=== PATIENT | female | born 1980 | race Caucasian/White ===

== ENCOUNTER → 2018-10-02 | Outpatient (CLI) | payer BC ==
[~2018-10-02] MED LIST: INSU100V5 SQ; PAMI30VI8 SQ
--- NOTE | 2018-10-02 18:52 | Diagnostic Imaging Report ---
INDICATION: Cough. Fever and chills. FINDINGS: There is a dense round infiltrate in the perihilar region in the left mid lung. This measures approximately 4 cm. The right lung is well-aerated and clear. The heart is not enlarged. No pulmonary edema. No pneumothorax or pleural effusion. IMPRESSION: Dense perihilar infiltrate on the left. This likely represents pneumonia with patient's symptoms. Followup is indicated to clear. Dictated by: Dictated on workstation # [id number]
== END ==
LOC: RAD FS 18:33
PROVIDERS: ATTEND Internal Medicine
DX: R91.8 Other nonspecific abnormal finding of lung field (principal); R05 Cough; R50.9 Fever, unspecified
CPT/HCPCS: 71046

== ENCOUNTER 2018-10-04 13:05 | Inpatient (IN) | payer BC ==
[~2018-10-04] VITALS: Ht 167.6 cm; Wt 74.4 kg
[2018-10-04] MEDS ORDERED: KETOROLAC 30 MG/ML VIAL IVP ONE (13:15)
[2018-10-04] MEDS ORDERED: NS IV 1000 ML 1,000 ML IV SCH ×2 (13:15→14:00)
--- NOTE | 2018-10-04 13:18 | ED Cough/URI ---
General Stated Complaint: PNEUMONIA Source: patient Exam Limitations: no limitations History of Present Illness Date Seen by Provider: Oct 04, 2018 Time Seen by Provider: 13:14 Initial Comments To ER per private vehicle with reports of pneumonia. She was seen at [facility] emergency room 2 days ago, given a shot and a prescription of antibiotics ( Levaquin). She is a type I diabetic and taking Levemir 30 units at at bedtime and NovoLog sliding scale twice a day. Due to nausea and vomiting she was unable to keep down the oral antibiotic starting yesterday. Was referred here. Primary care is Dr. Megan Valdovinos. Timing/Duration: constant Severity/Quality: moderate Associated Symptoms: cough, fever/chills, shortness of breath Allergies and Home Medications Allergies Coded Allergies: carbamazepine (Verified Allergy, Unknown, 10/04/18) Home Medications Insulin Determir 1,000 Units/10 Ml Soln, 30 UNITS SQ HS, (Reported) Insulin Lispro 100 Unit/1 Ml Cartridge, Unknown Dose SQ SLIDING/SCALE, (Reported ) Patient Home Medication List Home Medication List Reviewed: Yes Review of Systems Review of Systems Constitutional: see HPI, chills, malaise, weakness EENTM: see HPI Respiratory: see HPI, cough, short of breath Cardiovascular: no symptoms reported Genitourinary: no symptoms reported Musculoskeletal: no symptoms reported Skin: no symptoms reported Psychiatric/Neurological: No Symptoms Reported Hematologic/Lymphatic: No Symptoms Reported Immunological/Allergic: no symptoms reported Physical Exam Vital Signs - First Documented Capillary Refill : Height: '" Weight: lbs. oz. kg; BMI Method: General Appearance: WD/WN, no apparent distress Eyes: Bilateral Eye Normal Inspection, Bilateral Eye PERRL HEENT: PERRL/EOMI, normal ENT inspection Respiratory: no respiratory distress, no accessory muscle use, crackles (left base) Cardiovascular: no murmur, tachycardia Gastrointestinal: normal bowel sounds, non tender, soft Neurologic/Psychiatric: alert, normal mood/affect, oriented x 3 Skin: normal color, warm/dry Focused Exam Lactate Level 10/04/18 13:26: Lactic Acid Level 1.17 Lactic Acid Level Laboratory Tests Test 10/04/18 13:26 Lactic Acid Level 1.17 MMOL/L (0.50-2.00) Progress/Results/Core Measures Suspected Sepsis SIRS Temperature: Pulse: Respiratory Rate: Laboratory Tests 10/04/18 13:26: White Blood Count 19.3H Blood Pressure / Mean: 10/04/18 13:26: Lactic Acid Level 1.17 Laboratory Tests 10/04/18 13:26: Creatinine 1.11, Platelet Count 359, Total Bilirubin 0.5 Results/Orders Lab Results Laboratory Tests Test 10/04/18 13:26 10/04/18 13:45 10/04/18 14:08 Range/Units White Blood Count 19.3 H 4.3-11.0 10^3/uL Red Blood Count 4.31 L 4.35-5.85 10^6/uL Hemoglobin 13.5 11.5-16.0 G/DL Hematocrit 40 35-52 % Mean Corpuscular Volume 92 80-99 FL Mean Corpuscular Hemoglobin 31 25-34 PG Mean Corpuscular Hemoglobin Concent 34 32-36 G/DL Red Cell Distribution Width 12.7 10.0-14.5 % Platelet Count 359 130-400 10^3/uL Mean Platelet Volume 10.3 7.4-10.4 FL Neutrophils (%) (Auto) 87 H 42-75 % Lymphocytes (%) (Auto) 6 L 12-44 % Monocytes (%) (Auto) 6 0-12 % Eosinophils (%) (Auto) 1 0-10 % Basophils (%) (Auto) 0 0-10 % Neutrophils # (Auto) 16.9 H 1.8-7.8 X 10^3 Lymphocytes # (Auto) 1.2 1.0-4.0 X 10^3 Monocytes # (Auto) 1.1 H 0.0-1.0 X 10^3 Eosinophils # (Auto) 0.1 0.0-0.3 10^3/uL Basophils # (Auto) 0.0 0.0-0.1 10^3/uL Neutrophils % (Manual) 82 % Lymphocytes % (Manual) 8 % Monocytes % (Manual) 5 % Basophils % (Manual) 1 % Reactive Lymphocytes 4 % Blood Morphology Comment NORMAL Sodium Level 128 L 135-145 MMOL/L Potassium Level 5.1 H 3.6-5.0 MMOL/L Chloride Level 92 L 98-107 MMOL/L Carbon Dioxide Level 24 21-32 MMOL/L Anion Gap 12 5-14 MMOL/L Blood Urea Nitrogen 13 7-18 MG/DL Creatinine 1.11 0.60-1.30 MG/DL Estimat Glomerular Filtration Rate 54 BUN/Creatinine Ratio 12 Glucose Level 426 *H 70-105 MG/DL Lactic Acid Level 1.17 0.50-2.00 MMOL/L Calcium Level 11.7 H 8.5-10.1 MG/DL Corrected Calcium 11.8 H 8.5-10.1 MG/DL Total Bilirubin 0.5 0.1-1.0 MG/DL Aspartate Amino Transf (AST/SGOT) 14 5-34 U/L Alanine Aminotransferase (ALT/SGPT) 22 0-55 U/L Alkaline Phosphatase 228 H 40-136 U/L Total Protein 8.1 6.4-8.2 GM/DL Albumin 3.9 3.2-4.5 GM/DL Beta-Hydroxybutyrate (Chem panel) 3.02 H 0.00-0.27 MMOL/L Urine Color YELLOW Urine Clarity CLEAR Urine pH 5 5-9 Urine Specific [place] 1.010 L 1.016-1.022 Urine Protein 2+ H NEGATIVE Urine Glucose (UA) 4+ H NEGATIVE Urine Ketones 4+ H NEGATIVE Urine Nitrite NEGATIVE NEGATIVE Urine Bilirubin NEGATIVE NEGATIVE Urine Urobilinogen NORMAL NORMAL MG/DL Urine Leukocyte Esterase NEGATIVE NEGATIVE Urine RBC (Auto) 4+ H NEGATIVE Urine RBC 5-10 H /HPF Urine WBC 0-2 /HPF Urine Squamous Epithelial Cells 2-5 /HPF Urine Crystals NONE /LPF Urine Bacteria NEGATIVE /HPF Urine Casts NONE /LPF Urine Mucus NEGATIVE /LPF Urine Culture Indicated NO My Orders Orders - MAHESH LEAL APRN Cbc With Automated Diff (10/04/18 13:07) Comprehensive Metabolic Panel (10/04/18 13:07) Ua Culture If Indicated (10/04/18 13:07) Iv Heplock-Insert (Order) (10/04/18 13:07) Lactic Acid Analyzer (10/04/18 13:07) Blood Culture (10/04/18 13:07) Ns Iv 1000 Ml (Sodium Chloride 0.9%) (10/04/18 13:15) Ketorolac Injection (Toradol Injection) (10/04/18 13:15) Beta Hydroxybutyrate (10/04/18 13:18) Manual Differential (10/04/18 13:26) Chest Pa/Lat (2 View) (10/04/18 13:45) Hemoglobin A1c (10/04/18 13:47) Insulin (Regular) Human (Humulin R (Per (10/04/18 14:00) Ns Iv 1000 Ml (Sodium Chloride 0.9%) (10/04/18 14:00) Piperacillin/Tazobactam (Bulk) (Zosyn In (10/04/18 14:00) Accucheck Stat ONCE (10/04/18 14:37) Arterial Blood Gas (10/04/18 14:38) Medications Given in ED Current Medications Medications Dose Ordered Sig/Felicitas Route Start Time Stop Time Status Last Admin Dose Admin Insulin Human Regular 8 unit ONCE ONCE IV 10/04/18 14:00 10/04/18 14:01 DC 10/04/18 14:18 8 UNIT Ketorolac Tromethamine 15 mg ONCE ONCE IVP 10/04/18 13:15 10/04/18 13:16 DC 10/04/18 13:36 15 MG Piperacillin Sod/ Tazobactam Sod 4.5 gm/Sodium Chloride 120 ml @ 240 mls/hr ONCE ONCE IV 10/04/18 14:00 10/04/18 14:29 DC 10/04/18 14:25 240 MLS/HR Vital Signs/I&O 10/04/18 10/04/18 13:07 13:07 Temp 99.7 Pulse 121 Resp 18 B/P (MAP) 127/86 (100) O2 Delivery Room Air Room Air Capillary Refill : Departure Communication (Admissions) Time/Spoke to Admitting Phy: 14:[address] Maza. We will admit to medical floor, sepsis order set, Zosyn. Impression Primary Impression: Left lower lobe pneumonia Qualified Codes: J18.1 - Lobar pneumonia, unspecified organism Additional Impressions: failure of outpatient therapy Type 1 diabetes Qualified Codes: E10.8 - Type 1 diabetes mellitus with unspecified complications Disposition: ADMITTED INPATIENT Condition: Stable Admissions Decision to Admit Reason: Admit from ER (General) Decision to Admit/Date: Oct 04, 2018 Time/Decision to Admit Time: 13:18 Departure-Patient Inst. Referrals: MEGAN VALDOVINOS MD (PCP) Primary Care Physician MAHESH LEAL APRN Oct 04, 2018 13:18
[2018-10-04 13:34] LABS: BASOPHILS % (AUTO) 0 % (0-10); EOSINOPHILS # (AUTO) 0.1 10^3/uL (0.0-0.3); EOSINOPHILS % (AUTO) 1 % (0-10); HEMATOCRIT 40 % (35-52); HEMOGLOBIN 13.5 G/DL (11.5-16.0); LYMPHOCYTES # (AUTO) 1.2 X 10^3 (1.0-4.0); LYMPHOCYTES % (AUTO) 6 % (12-44); MEAN CORPUSCULAR HEMOGLOBIN 31 PG (25-34); MEAN CORPUSCULAR HGB CONC 34 G/DL (32-36); MEAN CORPUSCULAR VOLUME 92 FL (80-99); MEAN PLATELET VOLUME 10.3 FL (7.4-10.4); MONOCYTES # (AUTO) 1.1 X 10^3 (0.0-1.0); MONOCYTES % (AUTO) 6 % (0-12); NEUTROPHILS # (AUTO) 16.9 X 10^3 (1.8-7.8); NEUTROPHILS % (AUTO) 87 % (42-75); PLATELET COUNT 359 10^3/uL (130-400); RED CELL DISTRIBUTION WIDTH 12.7 % (10.0-14.5); WHITE BLOOD COUNT 19.3 10^3/uL (4.3-11.0)
[2018-10-04] MEDS ORDERED: INSU100V5 SQ (13:54)
[2018-10-04 13:55] LABS: ALBUMIN 3.9 GM/DL (3.2-4.5); BILIRUBIN,TOTAL 0.5 MG/DL (0.1-1.0); CALCIUM 11.7 MG/DL (8.5-10.1); CREATININE SERUM 1.11 MG/DL (0.60-1.30); POTASSIUM 5.1 MMOL/L (3.6-5.0); TOTAL PROTEIN 8.1 GM/DL (6.4-8.2)
[2018-10-04] MEDS ORDERED: PAMI30VI8 SQ (13:55)
[2018-10-04] MEDS ORDERED: inSUlin (REGULAR) HUMAN 1 UNIT/0.01 ML (CHARGE PER UNIT) IV ONE (14:00)
[2018-10-04] MEDS ORDERED: PIPERACILLIN/TAZOBACTAM (BULK) 4.5 GM in NS (IVPB) 100 ML IV ONE (14:00)
--- NOTE | 2018-10-04 14:08 | NUR ---
UA COLLECTED VIA CLEAN CATCH.
[2018-10-04 14:09] LABS: BASOPHILS % (MANUAL) 1 %; LYMPHOCYTES % (MANUAL) 8 %; MONOCYTES % (MANUAL) 5 %; NEUTROPHILS % (MANUAL) 82 %; RBC MORPH NORMAL; REACTIVE LYMPHOCYTES 4 %
--- NOTE | 2018-10-04 14:10 | NUR ---
PATIENT TO X-RAY VIA WHEELCHAIR.
[2018-10-04 14:16] LABS: BILIRUBIN,URINE NEGATIVE (NEGATIVE); CLARITY,URINE CLEAR; COLOR,URINE YELLOW; GLUCOSE, URINE (UA) 4+ (NEGATIVE); KETONES,URINE 4+ (NEGATIVE); LEUKOCYTE ESTERASE ,URINE NEGATIVE (NEGATIVE); NITRITE,URINE NEGATIVE (NEGATIVE); PH,URINE 5 (5-9); PROTEIN,URINE 2+ (NEGATIVE); UROBILINOGEN,URINE NORMAL (NORMAL)
[2018-10-04 14:23] LABS: BACTERIA,URINE NEGATIVE /HPF; WBC,URINE 0-2 /HPF
[2018-10-04 14:48] LABS: ABG BASE EXCESS -3.8 MMOL/L (-2.5-2.5); ABG OXYGEN SATURATION 96 % (94-100); ABG PCO2 39 MMHG (35-45); ABG PH 7.35 (7.37-7.43); ABG PO2 76 MMHG (79-93); ABG TCO2 21.9 MMOL/L (21.0-31.0)
[2018-10-04 14:50] LABS: ALLENS TEST YES-POS; INSPIRED O2 ROOM AIR; PATIENT TEMP 99.2; VENTILATOR NO
--- NOTE | 2018-10-04 14:50 | Diagnostic Imaging Report ---
INDICATION: Left-sided chest pain. TIME OF EXAM: 02:13 p.m. COMPARISON: Correlation is made with prior study from 10/02/2018. FINDINGS: Airspace infiltrate in left midlung appears to be increased when compared with prior exam and consistent with pneumonia. Right lung is clear. There is no effusion or pneumothorax. IMPRESSION: Slight increase in left-sided airspace pneumonia when compared with examination two days earlier. Dictated by: Dictated on workstation # [id number]
--- NOTE | 2018-10-04 15:40 | NUR ---
PATIENT TAKEN TO ROOM 430 BY WHEELCHAIR. PATIENT'S IV IS PATENT WITH GOOD BLOOD RETURN AND FLUSHES EASILY. VITAL SIGNS STABLE.
[2018-10-04 15:45] VITALS: BP 149/77
--- NOTE | 2018-10-04 16:23 | History & Physical-Hospitalist ---
History of Present Illness HPI/Chief Complaint Pt is a 38yoCF with a PMH of IDDMI who presented to the ER due to cough and SOB. She has been sick since last week with a cough and congestion. She was see by her doctor on 10/02 because she felt so short of breath. He gave her an antibiotic shot and started her on oral antbiotics. She then developed nausea, vomiting, and diarrhea and was unable to keep her antibiotics down. She continued to feel more short of breath with a worsening cough so decided to seek evlauaiton in the ER. She was found to meet sepsis criteria with a LLL PNA and admitted after failing outpatient management. Exam Limitations: no limitations Date Seen 10/04/18 Time Seen by a Provider: 16:17 Attending Physician Marvin Knapp MD PCP Nasim Martínez MD Referring Physician Date of Admission Oct 04, 2018 at 14:03 Home Medications & Allergies Home Medications Reviewed patient Home Medication Reconciliation performed by pharmacy medication reconciliations theater technician and/or nursing. Patients Allergies have been reviewed. Allergies Allergies Coded Allergies carbamazepine (Verified Allergy, Unknown, 10/04/18) Past Psatadv-Ckczdv-Ckjsuo Hx Past Med/Social Hx: Reviewed Nursing Past Med/Soc Hx Patient Social History Employed/Student: employed Alcohol Use: Occasionally Uses Recreational Drug Use: Yes (occasional THC) Smoking Status: Current Someday Smoker (1-2 packs per week) Type Used: Cigarettes 2nd Hand Smoke Exposure: Yes Recent Foreign Travel: No Contact w/other who traveled: No Recent Hopitalizations: No Recent Infectious Disease Expo: No Immunizations Up To Date Date of Influenza Vaccine: May 10, 2018 Seasonal Allergies Seasonal Allergies: No Past Medical History Surgeries: Hysterectomy : No (HYSTERECTOMY) Hysterectomy Endocrine: Diabetes, Insulin dep (Type I) History of Blood Disorders: No Family History Reviewed Nursing Family Hx No Pertinent Family Hx Review of Systems Constitutional: chills, fever, weakness EENTM: nose congestion Respiratory: cough, phlegm, short of breath Gastrointestinal: diarrhea, nausea, vomiting Genitourinary: no symptoms reported Musculoskeletal: back pain Psychiatric/Neurological: No Symptoms Reported Physical Exam Physical Exam Vital Signs Vital Signs - First Documented 10/04/18 15:31 Pulse Ox 99 Capillary Refill : Less Than 3 Seconds Height, Weight, BMI Height: 5'6.00" Weight: 160lbs. oz. 72.239937kq; BMI Method:Stated General Appearance: No Apparent Distress Eyes: Right Eye Normal Inspection, Right Eye PERRL HEENT: PERRL/EOMI, Normal ENT Inspection, Moist Mucous Membranes Neck: Full Range of Motion, Normal Inspection, Non Tender Respiratory: Lungs Clear, Normal Breath Sounds, No Accessory Muscle Use, No Respiratory Distress Cardiovascular: Regular Rate, Rhythm, No JVD, No Murmur, Normal Peripheral Pulses Gastrointestinal: Normal Bowel Sounds, Non Tender, Soft Back: Normal Inspection, No CVA Tenderness, No Vertebral Tenderness Extremity: Normal Capillary Refill, Non Tender, No Calf Tenderness, No Pedal Edema Neurologic/Psychiatric: Alert, Oriented x3, Normal Mood/Affect; No Aphasia, No Facial Droop Skin: Normal Color, Warm/Dry, Tattoos/Piercings Results Results/Procedures Labs Laboratory Tests 10/04/18 13:26 Patient resulted labs reviewed. Assessment/Plan Admission Diagnosis Sepsis Admission Status: Inpatient Order (span 2 midnights) Reason for Inpatient Admission: failed outpatient management Diagnosis/Problems Diagnosis/Problems (1) Sepsis Assessment & Plan: Tachycardia with leukocytosis No severe criteria met Continue IV abx with Zosyn given smoking history LLL PNA on CXR Await cultures Qualifiers: Sepsis type: sepsis due to unspecified organism Qualified Codes: A41.9 - Sepsis, unspecified organism (2) Left lower lobe pneumonia Status: Acute Assessment & Plan: Zosyn as above MAT Protocol Qualifiers: Pneumonia type: due to unspecified organism Qualified Codes: J18.1 - Lobar pneumonia, unspecified organism (3) Type 1 diabetes Status: Acute Assessment & Plan: Continue home insulin and sliding scale Qualifiers: Diabetes mellitus complication status: with unspecified complications Qualified Codes: E10.8 - Type 1 diabetes mellitus with unspecified complications MARVIN KNAPP MD Oct 04, 2018 16:22
[2018-10-04] MEDS ORDERED: LOPERAMIDE 2 MG (IMODIUM) CAP PO PRN (16:30)
[2018-10-04] MEDS ORDERED: MILK OF MAGNESIA 400 MG/5 ML 30 ML UDC PO PRN (16:30)
[2018-10-04] MEDS ORDERED: ONDANSETRON 4 MG/2 ML (SDV) Z0FRAN IV PRN (16:30)
[2018-10-04] MEDS ORDERED: ANTACID SUSP 30 ML UDC (MYLANTA) PO PRN (16:30)
[2018-10-04 16:38] VITALS: BP 149/77
[2018-10-04] MEDS ORDERED: RT-ALBUTEROL/IPRATROPIUM 3 ML (DUONEB) VIAL INH PRN (17:00)
[2018-10-04 18:04] LABS: BASOPHILS % (AUTO) 0 % (0-10); EOSINOPHILS # (AUTO) 0.2 10^3/uL (0.0-0.3); EOSINOPHILS % (AUTO) 1 % (0-10); HEMATOCRIT 36 % (35-52); HEMOGLOBIN 11.8 G/DL (11.5-16.0); LYMPHOCYTES # (AUTO) 1.7 X 10^3 (1.0-4.0); LYMPHOCYTES % (AUTO) 10 % (12-44); MEAN CORPUSCULAR HEMOGLOBIN 31 PG (25-34); MEAN CORPUSCULAR HGB CONC 33 G/DL (32-36); MEAN CORPUSCULAR VOLUME 93 FL (80-99); MEAN PLATELET VOLUME 10.4 FL (7.4-10.4); MONOCYTES # (AUTO) 1.6 X 10^3 (0.0-1.0); MONOCYTES % (AUTO) 9 % (0-12); NEUTROPHILS # (AUTO) 14.4 X 10^3 (1.8-7.8); NEUTROPHILS % (AUTO) 80 % (42-75); PLATELET COUNT 288 10^3/uL (130-400); RED CELL DISTRIBUTION WIDTH 12.2 % (10.0-14.5)
[2018-10-04] MEDS: NS IV 1000 ML 1,000 ML IV SCH (18:07)
[2018-10-04] MEDS: BENZONATATE 100 MG (TESSALON) CAPSULE PO PRN (18:07)
[2018-10-04 18:25] LABS: ALANINE AMINOTRANSFERASE 19 U/L (0-55); ALBUMIN 3.4 GM/DL (3.2-4.5); ALKALINE PHOSPHATASE 186 U/L (40-136); BILIRUBIN,TOTAL 0.5 MG/DL (0.1-1.0); BUN/CREATININE RATIO 16; CALCIUM 10.8 MG/DL (8.5-10.1); CARBON DIOXIDE 20 MMOL/L (21-32); CHLORIDE 101 MMOL/L (98-107); CREATININE SERUM 0.86 MG/DL (0.60-1.30); GFR ESTIMATED > 60; GLUCOSE 196 MG/DL (70-105); POTASSIUM 4.3 MMOL/L (3.6-5.0); SODIUM 134 MMOL/L (135-145); TOTAL PROTEIN 6.9 GM/DL (6.4-8.2)
[2018-10-04] MEDS: PIPERACILLIN/TAZO 4.5 GM/NS 100 ML IV SCH ×2 (19:32)
[2018-10-04 20:00] VITALS: BP 147/76
[2018-10-04] MEDS: inSUlin ASPART (NovoLOG) 1 UNIT/0.01 ML (CHARGE PER UNIT) SC SCH (20:38)
[2018-10-04] MEDS: APAP W/CODEINE ELIXIR 12.5 ML (TYLENOL W/CODEINE) PO PRN (20:39)
[2018-10-04] MEDS: RT-ALBUTEROL/IPRATROPIUM 3 ML (DUONEB) VIAL INH SCH (21:37)
[2018-10-04 23:33] VITALS: BP 120/68
[2018-10-05] VITALS (7 sets, daily range): BP systolic 120–183; BP diastolic 60–88
[2018-10-05] MEDS: NS IV 1000 ML 1,000 ML IV SCH ×2 (00:42→01:46)
[2018-10-05] MEDS: PIPERACILLIN/TAZO 4.5 GM/NS 100 ML IV SCH ×6 (03:07→19:58)
[2018-10-05] MEDS: APAP W/CODEINE ELIXIR 12.5 ML (TYLENOL W/CODEINE) PO PRN (03:07)
[2018-10-05] MEDS: RT-ALBUTEROL/IPRATROPIUM 3 ML (DUONEB) VIAL INH SCH ×4 (03:16→19:46)
[2018-10-05] MEDS: ACETAMINOPHEN 325 MG TABLET PO PRN ×2 (03:48→16:48)
[2018-10-05 06:21] LABS: BASOPHILS % (AUTO) 0 % (0-10); EOSINOPHILS # (AUTO) 0.1 10^3/uL (0.0-0.3); EOSINOPHILS % (AUTO) 1 % (0-10); HEMATOCRIT 35 % (35-52); HEMOGLOBIN 11.7 G/DL (11.5-16.0); LYMPHOCYTES # (AUTO) 1.3 X 10^3 (1.0-4.0); LYMPHOCYTES % (AUTO) 8 % (12-44); MEAN CORPUSCULAR HEMOGLOBIN 31 PG (25-34); MEAN CORPUSCULAR HGB CONC 33 G/DL (32-36); MEAN CORPUSCULAR VOLUME 92 FL (80-99); MEAN PLATELET VOLUME 10.2 FL (7.4-10.4); MONOCYTES # (AUTO) 1.4 X 10^3 (0.0-1.0); MONOCYTES % (AUTO) 9 % (0-12); NEUTROPHILS # (AUTO) 13.2 X 10^3 (1.8-7.8); NEUTROPHILS % (AUTO) 82 % (42-75); PLATELET COUNT 323 10^3/uL (130-400); RED CELL DISTRIBUTION WIDTH 12.7 % (10.0-14.5); WHITE BLOOD COUNT 16.1 10^3/uL (4.3-11.0)
[2018-10-05 06:42] LABS: ALANINE AMINOTRANSFERASE 21 U/L (0-55); ALBUMIN 3.2 GM/DL (3.2-4.5); ALKALINE PHOSPHATASE 178 U/L (40-136); BILIRUBIN,TOTAL 0.5 MG/DL (0.1-1.0); BUN/CREATININE RATIO 17; CALCIUM 10.5 MG/DL (8.5-10.1); CARBON DIOXIDE 20 MMOL/L (21-32); CHLORIDE 104 MMOL/L (98-107); CREATININE SERUM 0.76 MG/DL (0.60-1.30); GFR ESTIMATED > 60; GLUCOSE 123 MG/DL (70-105); POTASSIUM 3.9 MMOL/L (3.6-5.0); SODIUM 136 MMOL/L (135-145); TOTAL PROTEIN 6.6 GM/DL (6.4-8.2)
[2018-10-05] MEDS: inSUlin ASPART (NovoLOG) 1 UNIT/0.01 ML (CHARGE PER UNIT) SC SCH ×4 (06:43→21:13)
[2018-10-05] MEDS ORDERED: INSU100V SQ (08:35)
[2018-10-05] MEDS ORDERED: DEXT236S PO (08:37)
[2018-10-05] MEDS ORDERED: LEVO500T80 PO (08:38)
--- NOTE | 2018-10-05 09:45 | Pulmonary Consultation ---
History of Present Illness History of Present Illness Date of Consultation 10/05/18 09:45 Time Seen by Provider: 08:03 Date of Admission History of Present Illness 38yo with hx of IDDMI presented to ED secondary to worsening cough and SOB. Onset was over the last week. Failed out pt antibiotics. She then developed nausea, vomiting, and diarrhea and was unable to keep her antibiotics down. found to be in sepsis with a LLL PNA and admitted after failing outpatient management. I am consulted for pulmonary management. Allergies and Home Medications Allergies Coded Allergies: carbamazepine (Verified Allergy, Unknown, 10/04/18) Home Medications Amoxicillin/Potassium Clav 1 Each Tablet, 1 EACH PO BID Prescribed by: NEMESIO PATE on 10/11/18 1056 Insulin Determir 1,000 Units/10 Ml Soln, 30 UNITS SQ HS, (Reported) Insulin Lispro 100 Unit/1 Ml Vial, 2-6 UNIT SQ TIDAC, (Reported) Lisinopril 10 Mg Tablet, 10 MG PO DAILY Prescribed by: NEMESIO PATE on 10/11/18 1056 Metoprolol Tartrate 25 Mg Tablet, 12.5 MG PO BID Prescribed by: NEMESIO PATE on 10/11/18 1056 Past Oslqfik-Zrjuir-Lropnb Hx Past Med/Social Hx: Reviewed Nursing Past Med/Soc Hx Patient Social History Alcohol Use: Occasionally Uses Recreational Drug Use: Yes (occasional THC) Smoking Status: Current Someday Smoker (1-2 packs per week) Type Used: Cigarettes 2nd Hand Smoke Exposure: Yes Recent Foreign Travel: No Contact w/Someone Who Travel: No Recent Infectious Disease Expo: No Recent Hopitalizations: No Physical Abuse: No Sexual Abuse: No Mistreated: No Fear: No Immunizations Up To Date Date of Influenza Vaccine: May 10, 2018 Seasonal Allergies Seasonal Allergies: No Past Medical History Surgeries: Yes Hysterectomy Respiratory: Yes Pneumonia Cardiac: No Neurological: No : No (HYSTERECTOMY) 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 Genitourinary: No Gastrointestinal: No Musculoskeletal: No Endocrine: Yes Diabetes, Insulin dep (Type I) HEENT: No Cancer: No Psychosocial: No Integumentary: No Blood Disorders: No Family Medical History Reviewed Nursing Family Hx No Pertinent Family Hx Review of Systems Time Seen by Provider: 08:05 Constitutional: Fever, Chills, Sweats, Weakness, Malaise Eyes: No: Pain, Vision change, Conjunctivae inflammation, Eyelid inflammation, Other, Redness ENT: Nose congestion; No: Ear pain, Ear discharge, Nose pain, Nose discharge, Mouth pain, Mouth swelling, Throat pain, Throat swelling, Other Respiratory: Cough, Shortness of breath, SOB with excertion, Wheezing, Sputum Cardiovascular: Palpitations; No: Chest Pain Gastrointestinal: Nausea, Vomiting, Abdominal Pain, Constipation Neurological: Weakness Sepsis Event Evaluation Height, Weight, BMI Height: 5'6.00" Weight: 164lbs. 1.0oz. 74.890246zp; BMI Method:Stated Exam Exam Vital Signs Date Time Temp Pulse Resp B/P (MAP) Pulse Ox O2 Delivery O2 Flow Rate FiO2 10/05/18 09:03 98 Room Air 10/05/18 08:00 98.6 100 18 183/84 (117) 100 Room Air 10/05/18 07:55 93 Room Air 10/05/18 07:04 105 10/05/18 04:57 99.8 10/05/18 04:57 99.8 10/05/18 04:00 101.0 113 20 140/80 (100) 93 Room Air 10/05/18 03:48 101.7 10/05/18 03:16 93 Room Air 10/05/18 01:00 107 10/04/18 23:33 99.2 115 20 120/68 (85) 95 Room Air 10/04/18 21:37 95 Room Air 10/04/18 20:00 100.4 122 20 147/76 (99) 97 Room Air 10/04/18 20:00 Room Air 10/04/18 19:00 126 10/04/18 17:03 120 10/04/18 16:38 108 96 21 10/04/18 15:45 Room Air 10/04/18 15:45 98.9 108 20 149/77 96 Room Air 10/04/18 15:31 99.2 105 18 114/92 (99) 99 Room Air 10/04/18 13:07 Room Air 10/04/18 13:07 99.7 121 18 127/86 (100) Room Air I & O 10/05/18 07:00 Intake Total 4860 ml Output Total 100 ml Balance 4760 ml Height & Weight Height: 5'6.00" Weight: 164lbs. 1.0oz. 74.040520db; BMI Method:Stated General Appearance: No Apparent Distress, Anxious, Moderate Distress HEENT: PERRL/EOMI, Normal ENT Inspection, Moist Mucous Membranes Neck: Full Range of Motion, Normal Inspection, Non Tender Respiratory: Lungs Clear, Normal Breath Sounds, No Accessory Muscle Use, No Respiratory Distress Cardiovascular: Regular Rate, Rhythm, No JVD, No Murmur, Normal Peripheral Pulses Capillary Refill: Less Than 3 Seconds Gastrointestinal: normal bowel sounds, non tender, soft Extremity: Normal Capillary Refill, Non Tender, No Calf Tenderness, No Pedal Edema Neurologic/Psychiatric: Alert, Oriented x3, Normal Mood/Affect; No Aphasia, No Facial Droop Skin: Normal Color, Warm/Dry, Tattoos/Piercings Results Lab Laboratory Tests 10/04/18 13:26 10/04/18 17:51 10/05/18 06:05 Assessment/Plan Assessment/Plan LLL pneumonia with sepsis and small left pleural effusion -Continue IVF -Continue Zosyn and Vanco -Monitor close -Calix cultures -CT of chest reviewed -Pt will need continued radiologic f/u until complete resolution chronically uncontrolled Type 1 DM - with hyperglycemia -Hba1c - is 11 -repeat Urine ketones and Beta hydroxybutyrate -Insulin Tobacco and Marijuana use - denies other drugs -Education Metabolic acidosis -IVF -Give a 1 liter bolus of NS -Monitor Hyponatremia -Monitor Atelectasis - secondary to pneumonia -SVNS -IS -increase activity as tolerated Pleuritic CP secondary to pna normocytic Anemia -Probably dilutional -Monitor -Check Occult stool -Start Protonix PO JESSY GARCIA DO Oct 05, 2018 09:45
--- NOTE | 2018-10-05 09:46 | Progress Note-Hospitalist ---
Subjective HPI/CC On Admission Date Seen by Provider: Oct 05, 2018 Time Seen by Provider: 09:43 Pt is a 38yoCF with a PMH of IDDMI who presented to the ER due to cough and SOB. She has been sick since last week with a cough and congestion. She was see by her doctor on 10/02 because she felt so short of breath. He gave her an antibiotic shot and started her on oral antbiotics. She then developed nausea, vomiting, and diarrhea and was unable to keep her antibiotics down. She continued to feel more short of breath with a worsening cough so decided to seek evlauaiton in the ER. She was found to meet sepsis criteria with a LLL PNA and admitted after failing outpatient management. Subjective/Events-last exam Pt reports still feeling poorly. Having sharp left back and chest pain with deep inspiration. Focused Exam Lactate Level 10/04/18 13:26: Lactic Acid Level 1.17 10/04/18 17:51: Lactic Acid Level 1.08 Objective Exam Vital Signs Vital Signs Date Time Temp Pulse Resp B/P (MAP) Pulse Ox O2 Delivery O2 Flow Rate FiO2 10/05/18 09:03 98 Room Air 10/05/18 08:00 98.6 100 18 183/84 (117) 10/04/18 16:38 21 Capillary Refill : Less Than 3 Seconds General Appearance: No Apparent Distress Respiratory: No Accessory Muscle Use, No Respiratory Distress, Decreased Breath Sounds Cardiovascular: Regular Rate, Rhythm, No JVD, No Murmur, Normal Peripheral Pulses Gastrointestinal: Normal Bowel Sounds, Non Tender, Soft Extremity: No Calf Tenderness, No Pedal Edema Neurologic/Psychiatric: Alert, Oriented x3; No Aphasia, No Facial Droop Skin: Normal Color, Warm/Dry, Tattoos/Piercings Results/Procedures Lab Laboratory Tests 10/04/18 13:26 10/04/18 17:51 10/05/18 06:05 Patient resulted labs reviewed. Assessment/Plan Assessment and Plan Assess & Plan/Chief Complaint CAP Diagnosis/Problems Diagnosis/Problems (1) Sepsis Assessment & Plan: WBC improving but remains febrile Continue IV abx with Zosyn given smoking history LLL PNA on CXR Await cultures Pulm consulted, discussed with Dr Otoole Will get CT chest Qualifiers: Sepsis type: sepsis due to unspecified organism Qualified Codes: A41.9 - Sepsis, unspecified organism (2) Left lower lobe pneumonia Status: Acute Assessment & Plan: Zosyn as above MAT Protocol CT chest ordered Qualifiers: Pneumonia type: due to unspecified organism Qualified Codes: J18.1 - Lobar pneumonia, unspecified organism (3) Type 1 diabetes Status: Acute Assessment & Plan: Continue home insulin and sliding scale Qualifiers: Diabetes mellitus complication status: with unspecified complications Qualified Codes: E10.8 - Type 1 diabetes mellitus with unspecified complications Clinical Quality Measures DVT/VTE Risk/Contraindication: Risk Factor Score Per Nursin RFS Level Per Nursing on Admit: 3=High MARVIN LIANG MD Oct 05, 2018 09:46
[2018-10-05] MEDS: LIDOCAINE 4% (SALONPAS) PATCH TOP SCH (09:58)
[2018-10-05] MEDS: KETOROLAC 15 MG/ML VIAL IVP PRN ×2 (09:59→16:54)
[2018-10-05] MEDS ORDERED: VANCOMYCIN INJECTION 0.1 MG in NS (IVPB) 250 ML IV SCH (10:00)
[2018-10-05] MEDS: 1/2 NS IV SOLUTION 1,000 ML IV SCH ×2 (10:25→23:07)
[2018-10-05] MEDS ORDERED: VANCOMYCIN 1,750 MG/NS 500 ML IVPB IV NR ×2 (10:37)
[2018-10-05] MEDS ORDERED: ENOXAPARIN 40 MG/0.4 ML (LOVENOX) SYR ONE (10:50)
[2018-10-05] MEDS: ENOXAPARIN 40 MG/0.4 ML (LOVENOX) SYR SC SCH (10:54)
[2018-10-05] MEDS ORDERED: HOLD METFORMIN - RECEIVED CONTRAST 20 ML VIAL IV SCH (14:15)
[2018-10-05] MEDS ORDERED: CATHETER FLUSH 10 ML SYR IV PRN (14:15)
[2018-10-05] MEDS ORDERED: IOHEXOL 350 MG/ML 150 ML (OMNIPAQUE 350) VIAL IV ONE (14:15)
--- NOTE | 2018-10-05 15:02 | Diagnostic Imaging Report ---
PROCEDURE: CT angiography of the chest with contrast. TECHNIQUE: Multiple contiguous axial images were obtained through the chest after uneventful bolus administration of intravenous contrast. 2D reconstructed CTA MIP acquisitions were also performed. Auto Exposure Controls were utilized during the CT exam to meet ALARA standards for radiation dose reduction. INDICATION: Shortness of breath. FINDINGS: There is no intraluminal pulmonary arterial filling defects. There are no findings of pulmonary arterial embolus. The thoracic aorta is patent and nonaneurysmal. The patient has a small left-sided pleural effusion without evidence for loculation. There are extensive infiltrates in the left lung, most notably at the lingular segment. Patchy infiltrates in the infrahilar left lower lobe are present as well. The areas of dense consolidation show no distortion of the internal air bronchograms and no distortion of the traversing vascularity. There is no resultant mass effect and pneumonia is presumed; however, given the severity of consolidation, radiographic followup to resolution is felt appropriate. There are no findings of pulmonary abscess and there is no pneumothorax. The right lung is clear. IMPRESSION: 1. Negative for PE or acute aortic disease. 2. Pneumonia in the left lung involves upper greater than lower lobe segments. The severity of consolidation warrants radiographic followup. A small nonloculated left pleural effusion is noted. Dictated by: Dictated on workstation # [id number]
--- NOTE | 2018-10-05 17:32 | NUR ---
AFTER TYLENOL WAS GIVEN TEMPERATURE IS NOW 99.8
[2018-10-05] MEDS: LIDOCAINE PATCH REMOVAL TP SCH (19:58)
[2018-10-05] MEDS ORDERED: meTOprolol TARTRATE 25 MG (LOPRESSOR) TABLET ONE (21:07)
[2018-10-05] MEDS: meTOprolol TARTRATE 25 MG (LOPRESSOR) TABLET PO SCH (21:13)
[2018-10-05] MEDS: VANCOMYCIN 1250 MG/NS 250 ML IVPB IV SCH ×2 (23:30)
[2018-10-06] VITALS (8 sets, daily range): BP systolic 107–174; BP diastolic 53–100
[2018-10-06] MEDS: 1/2 NS IV SOLUTION 1,000 ML IV SCH (02:29)
[2018-10-06] MEDS: RT-ALBUTEROL/IPRATROPIUM 3 ML (DUONEB) VIAL INH SCH ×4 (02:50→20:23)
[2018-10-06] MEDS: PIPERACILLIN/TAZO 4.5 GM/NS 100 ML IV SCH ×6 (03:27→20:30)
[2018-10-06] MEDS: KETOROLAC 15 MG/ML VIAL IVP PRN ×3 (03:27→23:33)
[2018-10-06] MEDS: ACETAMINOPHEN 325 MG TABLET PO PRN (03:27)
[2018-10-06] MEDS: inSUlin ASPART (NovoLOG) 1 UNIT/0.01 ML (CHARGE PER UNIT) SC SCH ×5 (06:05→21:13)
[2018-10-06 06:07] LABS: BASOPHILS % (AUTO) 0 % (0-10); EOSINOPHILS # (AUTO) 0.2 10^3/uL (0.0-0.3); EOSINOPHILS % (AUTO) 3 % (0-10); HEMATOCRIT 31 % (35-52); HEMOGLOBIN 10.2 G/DL (11.5-16.0); LYMPHOCYTES # (AUTO) 1.2 X 10^3 (1.0-4.0); LYMPHOCYTES % (AUTO) 13 % (12-44); MEAN CORPUSCULAR HEMOGLOBIN 31 PG (25-34); MEAN CORPUSCULAR HGB CONC 33 G/DL (32-36); MEAN CORPUSCULAR VOLUME 93 FL (80-99); MONOCYTES # (AUTO) 0.9 X 10^3 (0.0-1.0); MONOCYTES % (AUTO) 11 % (0-12); NEUTROPHILS # (AUTO) 6.6 X 10^3 (1.8-7.8); NEUTROPHILS % (AUTO) 74 % (42-75); PLATELET COUNT 281 10^3/uL (130-400); RED CELL DISTRIBUTION WIDTH 12.9 % (10.0-14.5)
[2018-10-06 06:28] LABS: ALANINE AMINOTRANSFERASE 27 U/L (0-55); ALKALINE PHOSPHATASE 195 U/L (40-136); BILIRUBIN,TOTAL 0.3 MG/DL (0.1-1.0); BUN/CREATININE RATIO 18; CARBON DIOXIDE 18 MMOL/L (21-32); CHLORIDE 106 MMOL/L (98-107); CREATININE SERUM 0.84 MG/DL (0.60-1.30); GFR ESTIMATED > 60; GLUCOSE 246 MG/DL (70-105); SODIUM 134 MMOL/L (135-145); TOTAL PROTEIN 6.1 GM/DL (6.4-8.2)
[2018-10-06] MEDS ORDERED: NS IV 1000 ML 1,000 ML IV SCH (07:15)
[2018-10-06] MEDS: NS IV 1000 ML 1,000 ML IV SCH ×2 (07:15→14:00)
--- NOTE | 2018-10-06 07:20 | Pulmonary Progress Note ---
Subjective Time Seen by a Provider: 07:31 Subjective/Events-last exam Still complains of SOB. Sepsis Event Evaluation Height, Weight, BMI Height: 5'6.00" Weight: 164lbs. 1.0oz. [id number]; BMI Method:Stated Focused Exam Lactate Level 10/04/18 13:26: Lactic Acid Level 1.17 10/04/18 17:51: Lactic Acid Level 1.08 Exam Exam Vital Signs Date Time Temp Pulse Resp B/P (MAP) Pulse Ox O2 Delivery O2 Flow Rate FiO2 10/06/18 07:09 109 10/06/18 06:00 99.8 10/06/18 05:05 100.0 10/06/18 04:00 101.3 125 20 169/80 (109) 95 Room Air 10/06/18 04:00 101.3 10/06/18 04:00 101.3 10/06/18 03:27 101.5 10/06/18 03:27 101.5 10/06/18 03:20 101.8 10/06/18 02:50 97 Room Air 10/06/18 01:00 105 10/06/18 00:28 99.4 105 22 152/91 (111) 93 Room Air 10/05/18 22:05 119 135/79 (97) 10/05/18 21:15 119 159/82 (107) 10/05/18 20:00 97 Room Air 10/05/18 19:59 99.8 112 18 162/88 (112) 97 Room Air 10/05/18 19:45 95 Room Air 10/05/18 19:00 111 10/05/18 16:48 101.3 10/05/18 16:00 101.3 136 18 141/68 (92) 97 Room Air 10/05/18 15:26 98 Room Air 10/05/18 13:04 113 10/05/18 12:00 99.8 123 18 120/60 (80) 98 Room Air 10/05/18 09:03 98 Room Air 10/05/18 08:00 98.6 100 18 183/84 (117) 100 Room Air 10/05/18 07:55 93 Room Air I & O 10/06/18 07:00 Intake Total 4200.0 ml Output Total 2025 ml Balance 2175.0 ml Height & Weight Height: 5'6.00" Weight: 164lbs. 1.0oz. [id number]; BMI Method:Stated General Appearance: No Apparent Distress HEENT: PERRL/EOMI, Pharynx Normal Neck: Normal Inspection, Non Tender, Supple Respiratory: No Accessory Muscle Use, No Respiratory Distress, Decreased Breath Sounds Cardiovascular: Regular Rate, Rhythm, No JVD, No Murmur, Normal Peripheral Pulses Capillary Refill: Less Than 3 Seconds Gastrointestinal: normal bowel sounds, non tender, soft Extremity: No Calf Tenderness, No Pedal Edema Neurologic/Psychiatric: Alert, Oriented x3; No Aphasia, No Facial Droop Skin: Normal Color, Warm/Dry, Tattoos/Piercings Results Lab Laboratory Tests 10/04/18 13:26 10/04/18 17:51 10/05/18 06:05 10/06/18 05:50 Assessment/Plan Assessment/Plan LLL pneumonia with sepsis and small left pleural effusion -Leukocytosis - improving -Continue IVF -Continue Zosyn and Vanco -Monitor close -Calix cultures -CT of chest reviewed -Pt will need continued radiologic f/u until complete resolution chronically uncontrolled Type 1 DM - with hyperglycemia -I am concerned pt is going into DKA -Hba1c - is 11 -repeat Urine ketones and Beta hydroxybutyrate -Insulin Tobacco and Marijuana use - denies other drugs -Education Metabolic acidosis -Repeat LA, beta hydroxybutyrate and UA -IVF -Give a 1 liter bolus of NS -Monitor Hyponatremia -Monitor -Change 1/2 NS to NS at 150 cc/hr Atelectasis - secondary to pneumonia -SVNS -IS -increase activity as tolerated Pleuritic CP secondary to pna normocytic Anemia -Probably dilutional -Monitor -Check Occult stool -Start Protonix PO JESSY GARCIA DO Oct 06, 2018 07:20
[2018-10-06] MEDS: LIDOCAINE 4% (SALONPAS) PATCH TOP SCH (08:28)
[2018-10-06] MEDS: meTOprolol TARTRATE 25 MG (LOPRESSOR) TABLET PO SCH ×2 (08:28→20:31)
[2018-10-06] MEDS: PANTOPRAZOLE 40 MG (PROTONIX) TAB PO SCH (08:28)
--- NOTE | 2018-10-06 09:39 | Progress Note-Hospitalist ---
Subjective HPI/CC On Admission Date Seen by Provider: Oct 06, 2018 Time Seen by Provider: 09:35 Pt is a 38yoCF with a PMH of IDDMI who presented to the ER due to cough and SOB. She has been sick since last week with a cough and congestion. She was see by her doctor on 10/02 because she felt so short of breath. He gave her an antibiotic shot and started her on oral antbiotics. She then developed nausea, vomiting, and diarrhea and was unable to keep her antibiotics down. She continued to feel more short of breath with a worsening cough so decided to seek evlauaiton in the ER. She was found to meet sepsis criteria with a LLL PNA and admitted after failing outpatient management. Subjective/Events-last exam pt reports feeling much better. Sitting up in chair. No complaints. Focused Exam Lactate Level 10/04/18 13:26: Lactic Acid Level 1.17 10/04/18 17:51: Lactic Acid Level 1.08 10/06/18 07:40: Lactic Acid Level 1.79 Lactic Acid Level Laboratory Tests Test 10/06/18 07:40 Lactic Acid Level 1.79 MMOL/L (0.50-2.00) Objective Exam Vital Signs Vital Signs Date Time Temp Pulse Resp B/P (MAP) Pulse Ox O2 Delivery O2 Flow Rate FiO2 10/06/18 08:00 99.6 105 20 144/99 (114) 97 Room Air 10/04/18 16:38 21 Capillary Refill : Less Than 3 Seconds General Appearance: No Apparent Distress Respiratory: No Accessory Muscle Use, No Respiratory Distress, Decreased Breath Sounds Cardiovascular: No Murmur, Tachycardia Gastrointestinal: Normal Bowel Sounds, Non Tender, Soft Extremity: No Calf Tenderness, No Pedal Edema Neurologic/Psychiatric: Alert, Oriented x3 Skin: Normal Color, Warm/Dry, Tattoos/Piercings Results/Procedures Lab Laboratory Tests 10/06/18 05:50 Patient resulted labs reviewed. Assessment/Plan Assessment and Plan Assess & Plan/Chief Complaint CAP Diagnosis/Problems Diagnosis/Problems (1) Sepsis Assessment & Plan: Leukocytosis resolved but remains febrile Continue IV abx with Zosyn and Vanc CT consistent with CXR- shows significant consolidation of left lung BC NGTD Pulm consulted appreciate recs Qualifiers: Sepsis type: sepsis due to unspecified organism Qualified Codes: A41.9 - Sepsis, unspecified organism (2) Left lower lobe pneumonia Status: Acute Assessment & Plan: Vanc/Zosyn as above MAT Protocol Pulm consulted Qualifiers: Pneumonia type: due to unspecified organism Qualified Codes: J18.1 - Lobar pneumonia, unspecified organism (3) Type 1 diabetes Status: Acute Assessment & Plan: Continue home insulin and sliding scale CO2 of 18 but no gap and beta hydroxybutyrate negative Continue SSI and home insulin A1c 11.1 Levemir increased to 35 units for tonight Qualifiers: Diabetes mellitus complication status: with hyperglycemia Qualified Codes: E10.65 - Type 1 diabetes mellitus with hyperglycemia (4) Tachycardia Assessment & Plan: Persistent sinus tach Metoprolol started yesterday with no improvement Likely due to illness/fever Cardiology consulted, appreciate recs Clinical Quality Measures DVT/VTE Risk/Contraindication: Risk Factor Score Per Nursin RFS Level Per Nursing on Admit: 3=High MARVIN LIANG MD Oct 06, 2018 09:39
[2018-10-06 09:52] LABS: BILIRUBIN,URINE NEGATIVE (NEGATIVE); CLARITY,URINE CLEAR; COLOR,URINE YELLOW; GLUCOSE, URINE (UA) 2+ (NEGATIVE); KETONES,URINE NEGATIVE (NEGATIVE); LEUKOCYTE ESTERASE ,URINE NEGATIVE (NEGATIVE); NITRITE,URINE NEGATIVE (NEGATIVE); PH,URINE 6.5 (5-9); PROTEIN,URINE 1+ (NEGATIVE); UROBILINOGEN,URINE NORMAL (NORMAL)
[2018-10-06 10:10] LABS: BACTERIA,URINE TRACE /HPF; RBC,URINE 0-2 /HPF; SQUAMOUS EPITHELIAL CELL,UR 0-2 /HPF; WBC,URINE 0-2 /HPF
[2018-10-06 10:11] LABS: CALCIUM OXALATE CRYSTALS,UR RARE /LPF
[2018-10-06] MEDS: ENOXAPARIN 40 MG/0.4 ML (LOVENOX) SYR SC SCH (10:23)
--- NOTE | 2018-10-06 10:38 | Consultation-Cardiology ---
HPI-Cardiology Cardiology Consultation Date of Consultation 10/06/18 Date of Admission Time Seen by Provider: 10:35 Indication: tachycardia HPI 38 years old lady with history of diabetes mellitus, admitted for pneumonia, has been having shortness of breath and cough and fever. Noted to have tachycardia. She admitted having left-sided chest pain. Wrapping around the the left side of her chest. No syncope or near syncopal episodes. No previous cardiac history. Home Medications & Allergies Allergies: Coded Allergies: carbamazepine (Verified Allergy, Unknown, 10/04/18) Home Medication List Reviewed: Yes LYN-Zydwfw-Wpcuef Hx Patient Social History Employed/Student: employed Alcohol Use: Occasionally Uses Recreational Drug Use: Yes (occasional THC) Smoking Status: Current Someday Smoker (1-2 packs per week) Type Used: Cigarettes 2nd Hand Smoke Exposure: Yes Recent Foreign Travel: No Recent Infectious Disease Expo: No Recent Hopitalizations: No Immunizations Up To Date Date of Influenza Vaccine: May 10, 2018 Past Medical History past medical history as described below Family Medical History Significant Family History: No Pertinent Family Hx Family Medical Hx noncontributory to her current condition Review of Systems Constitutional: see HPI, fever, malaise EENTM: see HPI, no symptoms reported Respiratory: see HPI, cough, dyspnea on exertion, phlegm, short of breath Cardiovascular: see HPI, chest pain Gastrointestinal: no symptoms reported, see HPI Genitourinary: no symptoms reported, see HPI Musculoskeletal: no symptoms reported, see HPI Skin: no symptoms reported, see HPI Psychiatric/Neurological: No Symptoms Reported, See HPI Reviewed Test Results Reviewed Test Results Lab Laboratory Tests Test 10/05/18 10:39 10/05/18 15:53 10/05/18 20:50 10/06/18 04:53 Range/Units Glucometer 260 H 257 H 348 H 311 H 70-110 MG/DL Test 10/06/18 05:50 10/06/18 07:40 10/06/18 09:06 Range/Units White Blood Count 9.0 4.3-11.0 10^3/uL Red Blood Count 3.29 L 4.35-5.85 10^6/uL Hemoglobin 10.2 L 11.5-16.0 G/DL Hematocrit 31 L 35-52 % Mean Corpuscular Volume 93 80-99 FL Mean Corpuscular Hemoglobin 31 25-34 PG Mean Corpuscular Hemoglobin Concent 33 32-36 G/DL Red Cell Distribution Width 12.9 10.0-14.5 % Platelet Count 281 130-400 10^3/uL Mean Platelet Volume 10.0 7.4-10.4 FL Neutrophils (%) (Auto) 74 42-75 % Lymphocytes (%) (Auto) 13 12-44 % Monocytes (%) (Auto) 11 0-12 % Eosinophils (%) (Auto) 3 0-10 % Basophils (%) (Auto) 0 0-10 % Neutrophils # (Auto) 6.6 1.8-7.8 X 10^3 Lymphocytes # (Auto) 1.2 1.0-4.0 X 10^3 Monocytes # (Auto) 0.9 0.0-1.0 X 10^3 Eosinophils # (Auto) 0.2 0.0-0.3 10^3/uL Basophils # (Auto) 0.0 0.0-0.1 10^3/uL Sodium Level 134 L 135-145 MMOL/L Potassium Level 4.0 3.6-5.0 MMOL/L Chloride Level 106 98-107 MMOL/L Carbon Dioxide Level 18 L 21-32 MMOL/L Anion Gap 10 5-14 MMOL/L Blood Urea Nitrogen 15 7-18 MG/DL Creatinine 0.84 0.60-1.30 MG/DL Estimat Glomerular Filtration Rate > 60 BUN/Creatinine Ratio 18 Glucose Level 246 H 70-105 MG/DL Calcium Level 10.0 8.5-10.1 MG/DL Corrected Calcium 10.8 H 8.5-10.1 MG/DL Total Bilirubin 0.3 0.1-1.0 MG/DL Aspartate Amino Transf (AST/SGOT) 39 H 5-34 U/L Alanine Aminotransferase (ALT/SGPT) 27 0-55 U/L Alkaline Phosphatase 195 H 40-136 U/L Total Protein 6.1 L 6.4-8.2 GM/DL Albumin 3.0 L 3.2-4.5 GM/DL Lactic Acid Level 1.79 0.50-2.00 MMOL/L Beta-Hydroxybutyrate (Chem panel) 0.05 0.00-0.27 MMOL/L Urine Color YELLOW Urine Clarity CLEAR Urine pH 6.5 5-9 Urine Specific [place] 1.005 L 1.016-1.022 Urine Protein 1+ H NEGATIVE Urine Glucose (UA) 2+ H NEGATIVE Urine Ketones NEGATIVE NEGATIVE Urine Nitrite NEGATIVE NEGATIVE Urine Bilirubin NEGATIVE NEGATIVE Urine Urobilinogen NORMAL NORMAL MG/DL Urine Leukocyte Esterase NEGATIVE NEGATIVE Urine RBC (Auto) 3+ H NEGATIVE Urine RBC 0-2 /HPF Urine WBC 0-2 /HPF Urine Squamous Epithelial Cells 0-2 /HPF Urine Crystals PRESENT H /LPF Urine Calcium Oxalate Crystals RARE H /LPF Urine Bacteria TRACE /HPF Urine Casts NONE /LPF Urine Mucus NEGATIVE /LPF Urine Culture Indicated NO Physical Exam Vital Signs Vital Signs - First Documented 10/04/18 10/04/18 15:31 16:38 Pulse Ox 99 FiO2 21 Capillary Refill : Less Than 3 Seconds Height, Weight, BMI Height: 5'6.00" Weight: 164lbs. 1.0oz. [id number]; BMI Method:Stated General Appearance: No Apparent Distress, WD/WN Eyes: Bilateral Eye Normal Inspection, Bilateral Eye PERRL, Bilateral Eye EOMI HEENT: PERRL/EOMI, TMs Normal, Normal ENT Inspection, Pharynx Normal Neck: Full Range of Motion, Normal Inspection, Non Tender, Supple, Carotid Bruit Respiratory: Chest Non Tender, Lungs Clear, Normal Breath Sounds, No Accessory Muscle Use, No Respiratory Distress Cardiovascular: No Edema, No Gallop, No JVD, No Murmur, Normal Peripheral Pulses, Tachycardia Gastrointestinal: Normal Bowel Sounds, No Organomegaly, No Pulsatile Mass, Non Tender, Soft Back: Normal Inspection, No CVA Tenderness, No Vertebral Tenderness Extremity: Normal Capillary Refill, Normal Inspection, Normal Range of Motion, Non Tender, No Calf Tenderness, No Pedal Edema Neurologic/Psychiatric: Alert, Oriented x3, No Motor/Sensory Deficits, Normal Mood/Affect Skin: Normal Color, Warm/Dry Lymphatic: No Adenopathy A/P-Cardiology Admission Diagnosis Sinus tachycardia Hypoxemia Pneumonia Chest pain Assessment/Plan Sinus tachycardia, probably secondary to pneumonia, infection and hypoxemia. Continue on antibiotic at this time. ABG showed hypoxemia. I will initiate nasal cannula oxygen and monitor her tolerance and response. Chest pain, probably secondary to pneumonia and tachycardia. EKG showed sinus tachycardia with no acute abnormality. I will evaluate 2-D echocardiogram Pneumonia, receiving antibiotics, managed by primary care physician next Diabetes mellitus, followed and managed by primary care physician History of hysterectomy, complicated by prolonged infection about 4 years ago Clinical Quality Measures DVT/VTE Risk/Contraindication: Risk Factor Score Per Nursin RFS Level Per Nursing on Admit: 3=High RICARDO TEE MD Oct 06, 2018 10:38
[2018-10-06] MEDS: VANCOMYCIN 1250 MG/NS 250 ML IVPB IV SCH ×4 (10:41→23:33)
[2018-10-06] MEDS: APAP W/CODEINE ELIXIR 12.5 ML (TYLENOL W/CODEINE) PO PRN (17:07)
[2018-10-06 17:29] LABS: BUN/CREATININE RATIO 13; CALCIUM 10.2 MG/DL (8.5-10.1); CARBON DIOXIDE 16 MMOL/L (21-32); CHLORIDE 106 MMOL/L (98-107); GFR ESTIMATED > 60; GLUCOSE 248 MG/DL (70-105); SODIUM 135 MMOL/L (135-145)
[2018-10-06] MEDS: LIDOCAINE PATCH REMOVAL TP SCH (20:31)
--- NOTE | 2018-10-06 21:00 | NUR ---
This RN saw new orders by Dr Knapp to change pt to sliding scale B Novolog starting at 2100. Dr Knapp contacted by this RN as pt had FSBS of 314 that this nurse had already treated with [address]. [address] Knapp asked by this RN if she would like this RN to also administer another 3 units to equal the 10 units Novolog pt would have needed on SSB Novolog. Dr Knapp okay with this RN giving the other three units to equal 10 total units novolog. Order read back and confirmed.
[2018-10-06] MEDS: MELATONIN 3 MG TABLET PO PRN (21:13)
[2018-10-07] VITALS (7 sets, daily range): BP systolic 124–180; BP diastolic 77–99
[2018-10-07] MEDS: NS IV 1000 ML 1,000 ML IV SCH ×3 (02:12→10:42)
[2018-10-07] MEDS: RT-ALBUTEROL/IPRATROPIUM 3 ML (DUONEB) VIAL INH SCH ×4 (03:12→21:18)
[2018-10-07] MEDS: PIPERACILLIN/TAZO 4.5 GM/NS 100 ML IV SCH ×6 (03:40→20:02)
[2018-10-07] MEDS: inSUlin ASPART (NovoLOG) 1 UNIT/0.01 ML (CHARGE PER UNIT) SC SCH ×4 (05:35→20:58)
--- NOTE | 2018-10-07 05:43 | NUR ---
0453 - Pt states that shes not feeling right and askes this RN to check her FSBS. FSBS is 48. Pt is alert and oriented, able to swallow, but having weakness. 0458 - Pt given 4oz OJ and peanut butter with hayden crackers. 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 0515 - FSBS rechecked and result is 43. Pt given another 4oz OJ and Ensure and encouraged to eat more of her peanut butter and hayden crackers. 0538 - FSBS rechecked and result is 81. Pt now in normal range. This RN will notify Dr Knapp in AM of mild hypoglycemic reaction. Will continue to monitor.
--- NOTE | 2018-10-07 06:58 | NUR ---
This RN notified RT Gabby of ABG order put in by Dr. Otoole at this time.
[2018-10-07 07:05] LABS: BASOPHILS % (AUTO) 0 % (0-10); EOSINOPHILS # (AUTO) 0.4 10^3/uL (0.0-0.3); EOSINOPHILS % (AUTO) 4 % (0-10); HEMATOCRIT 34 % (35-52); HEMOGLOBIN 10.9 G/DL (11.5-16.0); LYMPHOCYTES # (AUTO) 1.1 X 10^3 (1.0-4.0); LYMPHOCYTES % (AUTO) 12 % (12-44); MEAN CORPUSCULAR HEMOGLOBIN 30 PG (25-34); MEAN CORPUSCULAR HGB CONC 32 G/DL (32-36); MEAN CORPUSCULAR VOLUME 95 FL (80-99); MEAN PLATELET VOLUME 10.3 FL (7.4-10.4); MONOCYTES # (AUTO) 1.4 X 10^3 (0.0-1.0); MONOCYTES % (AUTO) 16 % (0-12); NEUTROPHILS # (AUTO) 6.2 X 10^3 (1.8-7.8); NEUTROPHILS % (AUTO) 68 % (42-75); PLATELET COUNT 325 10^3/uL (130-400); WHITE BLOOD COUNT 9.1 10^3/uL (4.3-11.0)
[2018-10-07 07:25] LABS: ABG OXYGEN SATURATION 78 % (94-100); ABG PCO2 42 MMHG (35-45); ABG PH 7.36 (7.37-7.43); ABG PO2 43 MMHG (79-93); ABG TCO2 23.9 MMOL/L (21.0-31.0); ALLENS TEST YES-POS
[2018-10-07 07:26] LABS: INSPIRED O2 ROOM AIR; PATIENT TEMP 99.4; VENTILATOR NO
[2018-10-07 07:30] LABS: ALANINE AMINOTRANSFERASE 29 U/L (0-55); ALBUMIN 3.3 GM/DL (3.2-4.5); ALKALINE PHOSPHATASE 201 U/L (40-136); BILIRUBIN,TOTAL 0.5 MG/DL (0.1-1.0); BUN/CREATININE RATIO 11; CALCIUM 10.2 MG/DL (8.5-10.1); CARBON DIOXIDE 19 MMOL/L (21-32); CHLORIDE 108 MMOL/L (98-107); CREATININE SERUM 0.87 MG/DL (0.60-1.30); GFR ESTIMATED > 60; GLUCOSE 126 MG/DL (70-105); MAGNESIUM 1.7 MG/DL (1.8-2.4); PHOSPHORUS 4.4 MG/DL (2.3-4.7); POTASSIUM 4.1 MMOL/L (3.6-5.0); SODIUM 141 MMOL/L (135-145); TOTAL PROTEIN 6.6 GM/DL (6.4-8.2)
--- NOTE | 2018-10-07 07:50 | NUR ---
RT Pierre text Dr Otoole the results of this patients ABG and that she felt it was venous. Dr Otoole said he agreed it was probably venous instead. ABG done on at 0711 is believed to be venous.
--- NOTE | 2018-10-07 08:32 | Cardiology Progress Note ---
Subjective Date Seen by Provider: Oct 07, 2018 Time Seen by Provider: 08:30 Subjective/Events-last exam patient is laying down in bed, still having some shortness of breath on and off. No chest pain Review of Systems General: No Chills, No Night Sweats, No Fatigue, No Malaise, No Appetite, No Other HEENT: No Head Aches, No Visual Changes, No Ear Pain, No Dysphasia, No Sinus Congestion, No Post Nasal Drip, No Sore Throat, No Other Pulmonary: Dyspnea; No Cough, No Pleuritic Chest Pain, No Other Cardiovascular: No: Chest Pain, Palpitations, Orthopnea, Paroxysmal Noc. Dyspnea, Edema, Lt Headedness, Other Focused Exam Lactate Level 10/04/18 17:51: Lactic Acid Level 1.08 10/06/18 07:40: Lactic Acid Level 1.79 10/07/18 08:10: Lactic Acid Level Laboratory Tests Test 10/07/18 08:10 Objective-Cardiology Exam Last Set of Vital Signs Vital Signs 10/04/18 10/07/18 10/07/18 16:38 04:00 07:01 Temp 99.2 Pulse 122 Resp 18 B/P (MAP) 135/80 (98) Pulse Ox 93 O2 Delivery Room Air FiO2 21 Capillary Refill : Less Than 3 Seconds I&O Intake and Output 10/07/18 00:00 Intake Total 6784.5 ml Output Total 1900 ml Balance 4884.5 ml Intake Oral 3140 ml IV Total 3644.5 ml Output Urine Total 1900 ml # Voids 1 # Bowel Movements 2 General: Alert, Oriented X3, Cooperative HEENT: Atraumatic, PERRLA Neck: Supple, No JVD, No Thyromegaly Lungs: Clear to Auscultation, Normal Air Movement Heart: Regular Rate, Normal S1, Normal S2, No Murmurs Abdomen: Normal Bowel Sounds, Soft, No Tenderness, No Hepatosplenomegaly, No Masses Extremities: No Clubbing, No Cyanosis, No Edema, Normal Pulses, No Tenderness/ Swelling Skin: No Rashes, No Breakdown, No Significant Lesion Neuro: Normal Gait, Normal Speech, Strength at 5/5 X4 Ext, Normal Tone, Sensation Intact Psych/Mental Status: Mental Status NL, Mood NL Results Lab Laboratory Tests 10/06/18 17:06 10/07/18 06:15 A/P-Cardiology Admission Diagnosis Sinus tachycardia Hypoxemia Pneumonia Chest pain Assessment/Plan Sinus tachycardia, probably secondary to pneumonia, infection and hypoxemia. Continue on antibiotic at this time. ABG showed hypoxemia. continue to use oxygen at Echocardiogram showed pulmonary hypertension with PA pressure of 50 mmHg. Unknown etiology. Could be secondary to COPD or primary pulmonary hypertension. Discussed with Dr. Knapp, CTA of the chest was negative, continue with conservative management Chest pain, probably secondary to pneumonia and tachycardia. EKG showed sinus tachycardia with no acute abnormality. Pneumonia, receiving antibiotics, managed by primary care physician next Diabetes mellitus, followed and managed by primary care physician History of hysterectomy, complicated by prolonged infection about 4 years ago Clinical Quality Measures DVT/VTE Risk/Contraindication: Risk Factor Score Per Nursin RFS Level Per Nursing on Admit: 3=High RICARDO TEE MD Oct 07, 2018 08:32
[2018-10-07] MEDS: meTOprolol TARTRATE 25 MG (LOPRESSOR) TABLET PO SCH ×2 (09:04→20:02)
[2018-10-07] MEDS: LIDOCAINE 4% (SALONPAS) PATCH TOP SCH ×3 (09:04→21:20)
[2018-10-07] MEDS: PANTOPRAZOLE 40 MG (PROTONIX) TAB PO SCH (09:04)
[2018-10-07] MEDS ORDERED: RT-ALBUTEROL/IPRATROPIUM 3 ML (DUONEB) VIAL INH PRN (09:15)
[2018-10-07] MEDS ORDERED: TROUGH ORDER-PHARMACY XX NR (10:00)
--- NOTE | 2018-10-07 10:33 | Diagnostic Imaging Report ---
EXAMINATION: Chest radiograph, portable AP view. DATE: October 07, 2018 at 0701 hours. INDICATION: 38-year-old female, shortness of breath. Followup pneumonia. COMPARISON: Chest radiograph October 04, 2018. CT chest October 05, 2018. FINDINGS: There is interval increase in airspace consolidation in the left midlung which is somewhat masslike in appearance. There is also interval increased opacification within the left lower lung zone. There are increased streaky opacities in the right perihilar region and right lung base. There is no identified pneumothorax. IMPRESSION: 1. Significant interval increase in airspace consolidation in the left lung with interval increase in streaky opacities in the right perihilar region and right lung base. Findings may relate to a combination of airspace consolidative process, left-sided effusion, and/or atelectasis. Dictated by: Dictated on workstation # [id number]
[2018-10-07] MEDS: VANCOMYCIN 1250 MG/NS 250 ML IVPB IV SCH ×4 (11:02→22:58)
[2018-10-07] MEDS: ENOXAPARIN 40 MG/0.4 ML (LOVENOX) SYR SC SCH (11:03)
[2018-10-07] MEDS: KETOROLAC 15 MG/ML VIAL IVP PRN (11:08)
--- NOTE | 2018-10-07 11:10 | NUR ---
TORADOL 15MG IV FOR GENERAL DISCOMFORT.
--- NOTE | 2018-10-07 11:12 | Progress Note-Hospitalist ---
Subjective HPI/CC On Admission Date Seen by Provider: Oct 07, 2018 Time Seen by Provider: 11:08 Pt is a 38yoCF with a PMH of IDDMI who presented to the ER due to cough and SOB. She has been sick since last week with a cough and congestion. She was see by her doctor on 10/02 because she felt so short of breath. He gave her an antibiotic shot and started her on oral antbiotics. She then developed nausea, vomiting, and diarrhea and was unable to keep her antibiotics down. She continued to feel more short of breath with a worsening cough so decided to seek evlauaiton in the ER. She was found to meet sepsis criteria with a LLL PNA and admitted after failing outpatient management. Subjective/Events-last exam Pt reports feeling very tired today. Still having left side back/chest pain. Remains febrile as recently as 2330 last night. Discussed worsening CXR with her and review images with her. Discussed potential need for bronch. Focused Exam Lactate Level 10/04/18 17:51: Lactic Acid Level 1.08 10/06/18 07:40: Lactic Acid Level 1.79 10/07/18 08:10: Lactic Acid Level 0.82 Lactic Acid Level Laboratory Tests Test 10/07/18 08:10 Lactic Acid Level 0.82 MMOL/L (0.50-2.00) Objective Exam Vital Signs Vital Signs Date Time Temp Pulse Resp B/P (MAP) Pulse Ox O2 Delivery O2 Flow Rate FiO2 10/07/18 08:38 118 95 21 10/07/18 08:35 Room Air 10/07/18 08:00 99.3 18 172/90 (117) Capillary Refill : Less Than 3 SecondsLess Than 3 Seconds General Appearance: No Apparent Distress, WD/WN Respiratory: Lungs Clear, No Accessory Muscle Use, No Respiratory Distress Cardiovascular: No Edema, No Gallop, No JVD, No Murmur, Normal Peripheral Pulses, Tachycardia Gastrointestinal: Normal Bowel Sounds, Non Tender, Soft Neurologic/Psychiatric: Alert, Oriented x3, Normal Mood/Affect Skin: Tattoos/Piercings Results/Procedures Lab Laboratory Tests 10/06/18 17:06 10/07/18 06:15 Patient resulted labs reviewed. Assessment/Plan Assessment and Plan Assess & Plan/Chief Complaint CAP Diagnosis/Problems Diagnosis/Problems (1) Sepsis Assessment & Plan: Leukocytosis resolved but remains febrile Continue IV abx with Zosyn and Vanc CT consistent with CXR- shows significant consolidation of left lung CXT today much worse than on presentation Discussed with Dr Otoole, may need bronch tomorrow or Monday Consider repeat CT to rule out progression to empyema or abscess BC NGTD Pulm consulted appreciate recs Qualifiers: Sepsis type: sepsis due to unspecified organism Qualified Codes: A41.9 - Sepsis, unspecified organism (2) Left lower lobe pneumonia Status: Acute Assessment & Plan: Vanc/Zosyn as above MRSA screen negative but given worsening CXR and persistent fever will continue at least 24 more hours MAT Protocol Pulm consulted Flu negative Qualifiers: Pneumonia type: due to unspecified organism Qualified Codes: J18.1 - Lobar pneumonia, unspecified organism (3) Tachycardia Assessment & Plan: Persistent sinus tach Metoprolol initiated- remains tachy though Likely due to illness/fever Cardiology consulted, appreciate recs (4) Type 1 diabetes Status: Acute Assessment & Plan: Continue SSI A1c 11.1 Levemir 30 units tonight as was hypoglycemic overnight Qualifiers: Diabetes mellitus complication status: with hypoglycemia Diabetes mellitus complication detail: without coma Qualified Codes: E10.649 - Type 1 diabetes mellitus with hypoglycemia without coma (5) Pulmonary hypertension Status: Acute Assessment & Plan: Newly diagnosed on echo PA pressure of 50 Likely due to pna Clinical picture consistent with PE but CTA negative for PE Discussed with Dr Casanova- will get venous dopplers of lower extremities Clinical Quality Measures DVT/VTE Risk/Contraindication: Risk Factor Score Per Nursin RFS Level Per Nursing on Admit: 3=High MAVRIN LIANG MD Oct 07, 2018 11:12
--- NOTE | 2018-10-07 11:58 | NUR ---
TEMP 100.5.
--- NOTE | 2018-10-07 12:40 | NUR ---
IVF DC'D ORDERED.
[2018-10-07] MEDS: LIDOCAINE PATCH REMOVAL TP SCH (20:02)
--- NOTE | 2018-10-07 20:08 | NUR ---
Pt states that pain is worse at HS and that she refused her lidocaine patch this AM in hopes she could have it administered at HS. Dr Knapp contacted by this RN and received okay to administer a lidocaine patch this HS and change lidocaine patch order so it may be administered at 2100 and removed 12 hours later at 0900. Order read back and confirmed.
[2018-10-07] MEDS: MELATONIN 3 MG TABLET PO PRN (21:19)
[2018-10-08] MEDS: RT-ALBUTEROL/IPRATROPIUM 3 ML (DUONEB) VIAL INH SCH ×4 (03:10→19:51)
[2018-10-08] MEDS: PIPERACILLIN/TAZO 4.5 GM/NS 100 ML IV SCH ×6 (03:13→20:52)
[2018-10-08 03:15] VITALS: BP 129/76
[2018-10-08] MEDS: inSUlin ASPART (NovoLOG) 1 UNIT/0.01 ML (CHARGE PER UNIT) SC SCH ×4 (05:28→20:52)
[2018-10-08 05:58] LABS: BASOPHILS % (AUTO) 0 % (0-10); EOSINOPHILS # (AUTO) 0.4 10^3/uL (0.0-0.3); EOSINOPHILS % (AUTO) 4 % (0-10); HEMATOCRIT 33 % (35-52); HEMOGLOBIN 10.7 G/DL (11.5-16.0); LYMPHOCYTES # (AUTO) 1.6 X 10^3 (1.0-4.0); LYMPHOCYTES % (AUTO) 16 % (12-44); MEAN CORPUSCULAR HGB CONC 32 G/DL (32-36); MEAN CORPUSCULAR VOLUME 94 FL (80-99); MEAN PLATELET VOLUME 9.6 FL (7.4-10.4); MONOCYTES # (AUTO) 1.2 X 10^3 (0.0-1.0); MONOCYTES % (AUTO) 12 % (0-12); NEUTROPHILS # (AUTO) 6.6 X 10^3 (1.8-7.8); NEUTROPHILS % (AUTO) 67 % (42-75); PLATELET COUNT 459 10^3/uL (130-400); WHITE BLOOD COUNT 9.8 10^3/uL (4.3-11.0)
[2018-10-08 06:01] LABS: MEAN CORPUSCULAR HEMOGLOBIN 30 PG (25-34)
[2018-10-08 06:17] LABS: CALCIUM 10.2 MG/DL (8.5-10.1); CREATININE SERUM 1.24 MG/DL (0.60-1.30); MAGNESIUM 1.9 MG/DL (1.8-2.4); PHOSPHORUS 3.9 MG/DL (2.3-4.7)
--- NOTE | 2018-10-08 07:49 | Pulmonary Progress Note ---
Subjective Time Seen by a Provider: 08:14 Subjective/Events-last exam Pt feels improved. Sepsis Event Evaluation Height, Weight, BMI Height: 5'6.00" Weight: 164lbs. 1.0oz. 74.036260nl; BMI Method:Stated Focused Exam Lactate Level 10/06/18 07:40: Lactic Acid Level 1.79 10/07/18 08:10: Lactic Acid Level 0.82 Exam Exam Vital Signs Date Time Temp Pulse Resp B/P (MAP) Pulse Ox O2 Delivery O2 Flow Rate FiO2 10/08/18 07:18 114 10/08/18 03:15 99.4 106 16 129/76 (93) 94 Room Air 10/08/18 03:10 92 Room Air 10/08/18 01:00 107 10/07/18 23:39 99.9 116 16 124/77 (93) 95 Room Air 10/07/18 21:18 96 Room Air 10/07/18 20:00 97 Room Air 10/07/18 19:18 99.0 118 16 170/99 (122) 96 Room Air 10/07/18 19:00 118 10/07/18 16:08 Room Air 10/07/18 16:00 98.4 112 16 180/90 (120) 98 Room Air 10/07/18 15:53 97 Room Air 10/07/18 12:58 109 10/07/18 12:01 100.5 119 20 146/87 (106) 96 Room Air 10/07/18 08:38 118 95 21 10/07/18 08:35 95 Room Air 10/07/18 08:00 95 Room Air 10/07/18 08:00 99.3 119 18 172/90 (117) 95 Room Air I & O 10/08/18 07:00 Intake Total 3670.0 ml Balance 3670.0 ml Height & Weight Height: 5'6.00" Weight: 164lbs. 1.0oz. 74.545486vi; BMI Method:Stated General Appearance: No Apparent Distress, WD/WN Respiratory: Lungs Clear, No Accessory Muscle Use, No Respiratory Distress Cardiovascular: No Edema, No Gallop, No JVD, No Murmur, Normal Peripheral Pulses, Tachycardia Capillary Refill: Less Than 3 Seconds Gastrointestinal: normal bowel sounds, non tender, soft Neurologic/Psychiatric: Alert, Oriented x3, Normal Mood/Affect Skin: Normal Color, Warm/Dry, Tattoos/Piercings Results Lab Laboratory Tests 10/06/18 17:06 10/07/18 06:15 10/08/18 05:45 Assessment/Plan Assessment/Plan LLL pneumonia with sepsis and small left pleural effusion -Repeat CT of chest with contrast today r/o empyema -Leukocytosis - improving -Continue IVF -Continue Zosyn and Vanco -Monitor close -Calix cultures -CT of chest reviewed -Pt will need continued radiologic f/u until complete resolution Pulmonary HTN - per echo -- probably secondary to PNA with sepsis and hypoxia -This will need to be repeated 3 mo after discharge to ensure improvement. If pulmonary pressures are still elevated at that time she will need a right heart cath. chronically uncontrolled Type 1 DM - with hyperglycemia -Hba1c - is 11 -Insulin Tobacco and Marijuana use - denies other drugs -Education Metabolic acidosis -IVF -Monitor Atelectasis - secondary to pneumonia -SVNS -IS -increase activity as tolerated Pleuritic CP secondary to pna normocytic Anemia -Probably dilutional -Monitor -Check Occult stool -Start Protonix PO JESSY GARCIA DO Oct 08, 2018 07:49
[2018-10-08 08:00] VITALS: BP 176/99
--- NOTE | 2018-10-08 08:04 | Cardiology Progress Note ---
Subjective Date Seen by Provider: Oct 08, 2018 Time Seen by Provider: 08:03 Subjective/Events-last exam patient is sitting in a chair, feeling better today, breathing better. No chest pain. Review of Systems General: No Chills, No Night Sweats, No Fatigue, No Malaise, No Appetite, No Other HEENT: No Head Aches, No Visual Changes, No Eye Pain, No Ear Pain, No Dysphasia , No Sinus Congestion, No Post Nasal Drip, No Sore Throat, No Other Pulmonary: Dyspnea; No Cough, No Pleuritic Chest Pain, No Other Cardiovascular: No: Chest Pain, Palpitations, Orthopnea, Paroxysmal Noc. Dyspnea, Edema, Lt Headedness, Other Focused Exam Lactate Level 10/06/18 07:40: Lactic Acid Level 1.79 10/07/18 08:10: Lactic Acid Level 0.82 Objective-Cardiology Exam Last Set of Vital Signs Vital Signs 10/07/18 10/08/18 10/08/18 10/08/18 08:38 03:15 07:18 08:00 Temp 99.4 Pulse 114 Resp 16 B/P (MAP) 129/76 (93) Pulse Ox 95 O2 Delivery Room Air FiO2 21 Capillary Refill : Less Than 3 SecondsLess Than 3 Seconds I&O Intake and Output 10/08/18 00:00 Intake Total 5052.5 ml Balance 5052.5 ml Intake Oral 1905 ml IV Total 3147.5 ml # Voids 9 # Bowel Movements 1 Daily Weight Change No General: Alert, Oriented X3, Cooperative HEENT: Atraumatic, PERRLA Neck: Supple, No JVD, No Thyromegaly Lungs: Clear to Auscultation, Normal Air Movement Heart: Regular Rate, Normal S1, Normal S2, No Murmurs Abdomen: Normal Bowel Sounds, Soft, No Tenderness, No Hepatosplenomegaly, No Masses Extremities: No Clubbing, No Cyanosis, No Edema, Normal Pulses, No Tenderness/ Swelling Skin: No Rashes, No Breakdown, No Significant Lesion Neuro: Normal Gait, Normal Speech, Strength at 5/5 X4 Ext, Normal Tone, Sensation Intact Psych/Mental Status: Mental Status NL, Mood NL Results Lab Laboratory Tests 10/08/18 05:45 A/P-Cardiology Admission Diagnosis Sinus tachycardia Hypoxemia Pneumonia Chest pain Assessment/Plan Sinus tachycardia, probably secondary to pneumonia, infection and hypoxemia, continue to follow chest x-ray and continue antibiotic Hypertension, noted today, her blood pressure is usually under better control. Continue to monitor blood pressure without initiating any medication at this time. Echocardiogram showed pulmonary hypertension with PA pressure of 50 mmHg. Unknown etiology. Could be secondary to COPD or primary pulmonary hypertension. Discussed with Dr. Otoole, planning to repeat echocardiogram once pneumonia is better Chest pain, probably secondary to pneumonia and tachycardia. EKG showed sinus tachycardia with no acute abnormality. Pneumonia, receiving antibiotics, managed by primary care physician next Diabetes mellitus, followed and managed by primary care physician History of hysterectomy, complicated by prolonged infection about 4 years ago Clinical Quality Measures DVT/VTE Risk/Contraindication: Risk Factor Score Per Nursin RFS Level Per Nursing on Admit: 3=High RICARDO TEE MD Oct 08, 2018 08:04
--- NOTE | 2018-10-08 08:27 | Diagnostic Imaging Report ---
INDICATION: Followup pneumonia. TIME OF EXAM: 8:08 AM Correlation is made with prior chest one day earlier. FINDINGS: Heart size is stable. Extensive airspace consolidation left mid and lower lung field persists and shows no real change. Right lung is clear. There is central congestion. Left-sided effusion is unchanged. There is no pneumothorax. IMPRESSION: Overall stable left-sided infiltrate and pleural effusion when compared with examination one day earlier. Dictated by: Dictated on workstation # [id number]
[2018-10-08] MEDS: NS IV 1000 ML 1,000 ML IV SCH ×2 (08:40→17:20)
[2018-10-08] MEDS: meTOprolol TARTRATE 25 MG (LOPRESSOR) TABLET PO SCH ×2 (08:40→20:50)
[2018-10-08] MEDS: PATCH REMOVAL TP SCH (08:41)
--- NOTE | 2018-10-08 11:34 | Diagnostic Imaging Report ---
PROCEDURE: US Venous Lower Ext Barrera. TECHNIQUE: Multiple real-time grayscale images were obtained over the lower extremities in various projections, bilaterally. Additional duplex Doppler and color Doppler images were also obtained. INDICATION: Pain and shortness of breath. FINDINGS: The common femoral, femoral, popliteal veins and tibial veins demonstrate normal response to compression, augmentation and Valsalva. There are no abnormal lower extremity fluid collections or masses. IMPRESSION: No evidence of deep venous thrombosis in either lower extremity. Dictated by: Dictated on workstation # [id number]
[2018-10-08] MEDS: VANCOMYCIN 1250 MG/NS 250 ML IVPB IV SCH ×4 (11:52→23:45)
[2018-10-08] MEDS: ENOXAPARIN 40 MG/0.4 ML (LOVENOX) SYR SC SCH (11:52)
[2018-10-08 12:00] VITALS: BP 169/93
--- NOTE | 2018-10-08 13:24 | Progress Note-Hospitalist ---
Progress Note Progress Notes/Assess & Plan Date Seen 10/08/18 Time Seen by Provider: 13:19 Assessment & Plan She has not had a fever for more than 24 hours now. She stateThe patient is a 38-year-old white female who was admitted 4 days ago with apparent pneumonia and sepsis. She has been very slow to rebound. She has been slowly improving since her admission. Her initial white count was 18,000 and has dropped to the 9000 range the past 2 days. She was able to walk in the hallway today for the first time. The chest x-ray shows her small effusion to be stable. It is also noted that her pulmonary artery pressure was elevated at 50 mm of Mercury. Physical exam: She continues to have a pulse rate in the low 100s. Lungs are clear to auscultation. Abdomen is soft. Extremities show no pedal edema. Impression: Pneumonia. This has been slow to resolve. 2.diabetes. 3.pulmonary artery hypertension. Plan: Continue on present antibiotics. Increase activity. Focused Exam Lactate Level 10/06/18 07:40: Lactic Acid Level 1.79 10/07/18 08:10: Lactic Acid Level 0.82 JUANITO QUEZADA MD Oct 08, 2018 13:24
[2018-10-08 16:30] VITALS: BP 126/58
--- NOTE | 2018-10-08 16:45 | NUR ---
TORADOL 15MG IV FOR GENERAL DISCOMFORT.
[2018-10-08] MEDS: KETOROLAC 15 MG/ML VIAL IVP PRN (16:48)
[2018-10-08] MEDS: LIDOCAINE 4% (SALONPAS) PATCH TOP SCH (20:50)
[2018-10-08 20:55] VITALS: BP 118/83
[2018-10-08] MEDS: MELATONIN 3 MG TABLET PO PRN (21:00)
[2018-10-08 23:45] VITALS: BP 118/73
[2018-10-09] MEDS: RT-ALBUTEROL/IPRATROPIUM 3 ML (DUONEB) VIAL INH SCH ×4 (02:38→21:24)
[2018-10-09] MEDS: PIPERACILLIN/TAZO 4.5 GM/NS 100 ML IV SCH ×6 (03:59→19:54)
[2018-10-09] MEDS: NS IV 1000 ML 1,000 ML IV SCH (03:59)
[2018-10-09 04:00] VITALS: BP 138/86
[2018-10-09] MEDS: ACETAMINOPHEN 325 MG TABLET PO PRN (06:07)
[2018-10-09] MEDS: inSUlin ASPART (NovoLOG) 1 UNIT/0.01 ML (CHARGE PER UNIT) SC SCH ×4 (06:08→21:14)
--- NOTE | 2018-10-09 07:34 | Cardiology Progress Note ---
Subjective Date Seen by Provider: Oct 09, 2018 Time Seen by Provider: 07:33 Subjective/Events-last exam patient is sitting in a chair, comfortable, feeling better, asking to go home Review of Systems General: No Chills, No Night Sweats, No Fatigue, No Malaise, No Appetite, No Other HEENT: No Head Aches, No Visual Changes, No Eye Pain, No Ear Pain, No Dysphasia , No Sinus Congestion, No Post Nasal Drip, No Sore Throat, No Other Pulmonary: No Dyspnea, No Cough, No Pleuritic Chest Pain, No Other Cardiovascular: No: Chest Pain, Palpitations, Orthopnea, Paroxysmal Noc. Dyspnea, Edema, Lt Headedness, Other Focused Exam Lactate Level 10/06/18 07:40: Lactic Acid Level 1.79 10/07/18 08:10: Lactic Acid Level 0.82 Objective-Cardiology Exam Last Set of Vital Signs Vital Signs 10/07/18 10/09/18 08:38 04:00 Temp 99.4 Pulse 107 Resp 14 B/P (MAP) 138/86 (103) Pulse Ox 92 O2 Delivery Room Air FiO2 21 Capillary Refill : Less Than 3 SecondsLess Than 3 Seconds I&O Intake and Output 10/09/18 00:00 Intake Total 5692.5 ml Balance 5692.5 ml Intake Oral 4310 ml IV Total 1382.5 ml # Voids 10 Daily Weight Change No General: Alert, Oriented X3, Cooperative HEENT: Atraumatic, PERRLA Neck: Supple, No JVD, No Thyromegaly Lungs: Clear to Auscultation, Normal Air Movement Heart: Regular Rate, Normal S1, Normal S2, No Murmurs Abdomen: Normal Bowel Sounds, Soft, No Tenderness, No Hepatosplenomegaly, No Masses Extremities: No Clubbing, No Cyanosis, No Edema, Normal Pulses, No Tenderness/ Swelling Skin: No Rashes, No Breakdown, No Significant Lesion Neuro: Normal Gait, Normal Speech, Strength at 5/5 X4 Ext, Normal Tone, Sensation Intact Psych/Mental Status: Mental Status NL, Mood NL Results Lab Laboratory Tests Test 10/08/18 11:09 10/08/18 16:44 10/09/18 06:08 Range/Units Glucometer 232 H 190 H 164 H 70-110 MG/DL A/P-Cardiology Admission Diagnosis Sinus tachycardia Hypoxemia Pneumonia Chest pain Assessment/Plan Sinus tachycardia, probably secondary to pneumonia, infection and hypoxemia, continue to follow chest x-ray and continue antibiotic Hypertension, better today, not receiving any antihypertensive medication. Continue to monitor Echocardiogram showed pulmonary hypertension with PA pressure of 50 mmHg. Unknown etiology. Could be secondary to COPD or primary pulmonary hypertension. Discussed with Dr. Otoole, planning to repeat echocardiogram once pneumonia is better, it can be done as an outpatient Chest pain, probably secondary to pneumonia and tachycardia. EKG showed sinus tachycardia with no acute abnormality. Pneumonia, receiving antibiotics, managed by primary care physician next Diabetes mellitus, followed and managed by primary care physician History of hysterectomy, complicated by prolonged infection about 4 years ago Clinical Quality Measures DVT/VTE Risk/Contraindication: Risk Factor Score Per Nursin RFS Level Per Nursing on Admit: 3=High RICARDO TEE MD Oct 09, 2018 07:34
[2018-10-09 08:00] VITALS: BP 169/93
[2018-10-09] MEDS: meTOprolol TARTRATE 25 MG (LOPRESSOR) TABLET PO SCH ×2 (09:10→20:23)
[2018-10-09] MEDS: PATCH REMOVAL TP SCH (09:12)
--- NOTE | 2018-10-09 09:13 | NUR ---
prior to a.m. medications pulse was 98 and b/p was 169/93
[2018-10-09] MEDS ORDERED: DEXTROSE 50% 50 ML (IMS) SYR IV NR (09:23)
[2018-10-09] MEDS ORDERED: DEXTROSE 50% 50 ML (IMS) SYR ONE (09:24)
[2018-10-09] MEDS: ENOXAPARIN 40 MG/0.4 ML (LOVENOX) SYR SC SCH (10:02)
[2018-10-09] MEDS: VANCOMYCIN 1250 MG/NS 250 ML IVPB IV SCH ×4 (10:09→22:33)
[2018-10-09 12:00] VITALS: BP 184/106
--- NOTE | 2018-10-09 12:07 | Progress Note-Hospitalist ---
Progress Note Progress Notes/Assess & Plan Date Seen 10/09/18 Time Seen by Provider: 12:04 Assessment & Plan The patient has normal vital signs. Her SaO2 is in the mid 90s on room air. She reports that she is gaining strength and walking much better in the hallways. She is eager to go home. She had a repeat CT scan today which I have reviewed. The final report is not yet available however she shows a considerable pleural effusion on the left and a much lesser effusion on the right. Physical exam: She speaks in full sentences. Her color is good. Lungs show some dullness to auscultation and percussion on the left. CV is regular in the rate remains in the 100-110 region. Also as a reflection of her improvement in her blood sugars have been better. Impression: Resolving pneumonia. 2.large pleural effusion on the left. 3.improving diabetic management. Plan: Continue antibiotics. Encourage up in the rees. Consider a thoracentesis. Focused Exam Lactate Level 10/07/18 08:10: Lactic Acid Level 0.82 JUANITO QUEZADA MD Oct 09, 2018 12:07
--- NOTE | 2018-10-09 14:40 | Diagnostic Imaging Report ---
PROCEDURE: CT chest with contrast only. TECHNIQUE: Multiple contiguous axial images were obtained through the chest after administration of intravenous contrast. Auto Exposure Controls were utilized during the CT exam to meet ALARA standards for radiation dose reduction. INDICATION: Pneumonia, followup. CORRELATION STUDY: CT chest 10/05/2018. FINDINGS: There is again noted rather extensive consolidation of large portion of the basilar aspect of the left upper lobe. The overall geographic area of consolidation appears increased from prior study. Moderate bilateral pleural effusions are also adversely developed and/or increased from prior study. Maximum thickness on the left approximately 5 cm and on the right 3 cm. There is associated significant compressive atelectasis in the left lower lobe and to a lesser degree minimal portions of the right lower lobe. Heart size is enlarged. Trace pericardial effusion. Mildly prominent but nonpathologic enlarged mediastinal lymph nodes are suggested. AP window lymph node appears to be largest at 16 x 14 mm. Mediastinal and subcarinal lymph nodes are also present. Low-density mass of the right lobe of the thyroid gland is present. Visualized portion of the upper abdomen demonstrates heterogeneous appearance about the liver parenchyma, could be reflective of some degree of passive congestion. Underlying hepatosplenomegaly is suggested. IMPRESSION: 1. Increasing severity of consolidation, likely densely consolidated pneumonia large portion left upper lobe. 2. At least moderate size bilateral pleural effusions, left greater than right, have also adversely changed. Resulting significant compressive atelectasis of the left lower lobe. No definitive empyema suggested at this time, but may very well be developing. 3. Likely reactive lymphadenopathy. 4. Heterogeneous attenuation of the liver parenchyma may reflect perhaps hepatic congestion. Dictated by: Dictated on workstation # [id number]
[2018-10-09 14:43] LABS: HEMOGLOBIN 10.5 G/DL (11.5-16.0); MEAN PLATELET VOLUME 9.8 FL (7.4-10.4); RED CELL DISTRIBUTION WIDTH 12.7 % (10.0-14.5); WHITE BLOOD COUNT 9.4 10^3/uL (4.3-11.0)
--- NOTE | 2018-10-09 15:04 | Diagnostic Imaging Report ---
INDICATION: Pleural effusion. Evaluation of the right and left posterior chest was performed. A right chest is unremarkable. No fluid in the right pleural space is identified. A moderate-sized left pleural effusion is noted calculated to be approximately 1000 mL. A willie was placed on the patient's skin. Distance from the skin surface to center of fluid collection is approximately 3.8 cm. IMPRESSION: Moderate left pleural effusion. Dictated by: Dictated on workstation # [id number]
[2018-10-09 15:09] LABS: ALBUMIN 3.3 GM/DL (3.2-4.5); BILIRUBIN,TOTAL 0.4 MG/DL (0.1-1.0); CALCIUM 10.1 MG/DL (8.5-10.1); CREATININE SERUM 1.17 MG/DL (0.60-1.30); PHOSPHORUS 3.2 MG/DL (2.3-4.7); POTASSIUM 4.1 MMOL/L (3.6-5.0); TOTAL PROTEIN 6.6 GM/DL (6.4-8.2)
[2018-10-09] MEDS ORDERED: LIDOCAINE 1% INJ 20 ML 20 ML VIAL ONE (15:15)
[2018-10-09] MEDS ORDERED: LIDOCAINE 1% INJ 20 ML 20 ML VIAL INJ ONE (15:30)
[2018-10-09] MEDS ORDERED: LIDOCAINE 1% INJ 20 ML 20 ML VIAL INJ NR (15:45)
--- NOTE | 2018-10-09 15:56 | NUR ---
Dr. Otoole at bedside for thoracentesis. This RN will continue to monitor this patient for pneumothorax. chest x-ray ordered at this time. Bandaide to left posterior back from thoracentesis. Patient tolerated well, thsi rn will cont to monitor this patient.
[2018-10-09 16:00] VITALS: BP 182/110
--- NOTE | 2018-10-09 16:19 | Diagnostic Imaging Report ---
INDICATION: Status post thoracentesis. Study is performed To evaluate for pneumothorax. TIME OF EXAM: 04:09 p.m. Correlation is made with prior study earlier same day. There has been reduction in left-sided pleural effusion, status post thoracentesis. No pneumothorax is seen. Left-sided parenchymal infiltrate persists. IMPRESSION: Decrease in left pleural effusion, status post thoracentesis. No pneumothorax is identified. Dictated by: Dictated on workstation # [id number]
[2018-10-09] MEDS ORDERED: morphine INJ 10 MG/ML 1ML (SYR OR VIAL) IVP NR (16:25)
[2018-10-09 16:51] LABS: BODY FLUID APPEARENCE CLEAR; BODY FLUID COLOR YELLOW; BODY FLUID SOURCE PLEURAL; GLUCOSE,BODY FLUID 93 MG/DL; TOTAL PROTEIN,BODY FLUID 2.5 G/DL
[2018-10-09 16:52] LABS: LDH,BODY FLUID 254 U/L
[2018-10-09 17:00] LABS: BODY FLUID PH 6.7
[2018-10-09 17:22] LABS: BF OTHER CELLS 32 %; BODY FLUID RBC COUNT 2180 /uL; BODY FLUID WBC TOTAL COUNT 1190 /uL; LYMPHOCYTES,BODY FLUID 18 %
[2018-10-09] MEDS ORDERED: lisINopril 40 MG (PRINIVIL) TABLET PO NR (19:00)
[2018-10-09] MEDS ORDERED: lisINopril 10 MG (PRINIVIL) TABLET ONE (19:07)
[2018-10-09] MEDS: KETOROLAC 15 MG/ML VIAL IVP PRN (19:14)
[2018-10-09 20:20] VITALS: BP 169/85
[2018-10-09] MEDS: MELATONIN 3 MG TABLET PO PRN (20:28)
[2018-10-09] MEDS: LIDOCAINE 4% (SALONPAS) PATCH TOP SCH (20:28)
[2018-10-10] VITALS (7 sets, daily range): BP systolic 100–173; BP diastolic 59–90
[2018-10-10] MEDS: RT-ALBUTEROL/IPRATROPIUM 3 ML (DUONEB) VIAL INH SCH ×4 (02:44→20:16)
[2018-10-10] MEDS: PIPERACILLIN/TAZO 4.5 GM/NS 100 ML IV SCH ×2 (03:03)
[2018-10-10] MEDS: KETOROLAC 15 MG/ML VIAL IVP PRN (03:04)
[2018-10-10] MEDS: inSUlin ASPART (NovoLOG) 1 UNIT/0.01 ML (CHARGE PER UNIT) SC SCH ×4 (06:48→21:08)
--- NOTE | 2018-10-10 08:25 | NUR ---
Critical BS amadeo tidwell, results of 50 , Dr. Pro notified and quick sugar given. will recheck in 30 minutes.
--- NOTE | 2018-10-10 08:46 | Cardiology Progress Note ---
Subjective Date Seen by Provider: Oct 10, 2018 Time Seen by Provider: 08:44 Subjective/Events-last exam Patient is sitting up in chair eating breakfast. Reports significant improvement in dyspnea after thoracentesis. Denies any chest pain or dyspnea. Objective-Cardiology Exam Last Set of Vital Signs Vital Signs 10/07/18 10/10/18 08:38 03:05 Temp 98.5 Pulse 101 Resp 20 B/P (MAP) 151/90 (110) Pulse Ox 91 O2 Delivery Room Air FiO2 21 Capillary Refill : Less Than 3 SecondsLess Than 3 Seconds I&O Intake and Output 10/10/18 00:00 Intake Total 5645.0 ml Balance 5645.0 ml Intake Oral 2550 ml IV Total 3095.0 ml # Voids 9 Daily Weight Change No General: Alert, Oriented X3, Cooperative HEENT: Atraumatic, PERRLA Neck: Supple, No JVD, No Thyromegaly Lungs: Normal Air Movement, Other (bilateral wheezing) Heart: Regular Rate, Normal S1, Normal S2, No Murmurs Abdomen: Normal Bowel Sounds, Soft, No Tenderness, No Hepatosplenomegaly, No Masses Extremities: No Clubbing, No Cyanosis, No Edema, Normal Pulses, No Tenderness/ Swelling Skin: No Rashes, No Breakdown, No Significant Lesion Neuro: Normal Gait, Normal Speech, Strength at 5/5 X4 Ext, Normal Tone, Sensation Intact Psych/Mental Status: Mental Status NL, Mood NL Results Lab Laboratory Tests 10/09/18 14:37 A/P-Cardiology Admission Diagnosis Sinus tachycardia Hypoxemia Pneumonia Chest pain Assessment/Plan Sinus tachycardia, probably secondary to pneumonia, infection and hypoxemia, continue to follow chest x-ray and continue antibiotic Hypertension, labile. Maintained on lopressor and lisinopril . Continue to monitor. Echocardiogram showed pulmonary hypertension with PA pressure of 50 mmHg. Unknown etiology. Could be secondary to COPD or primary pulmonary hypertension. Discussed with Dr. Otoole, planning to repeat echocardiogram once pneumonia is better, it can be done as an outpatient Chest pain, probably secondary to pneumonia and tachycardia. EKG showed sinus tachycardia with no acute abnormality. Pneumonia, receiving antibiotics, managed by primary care physician Pleural effusion-s/p thoracentesis. Diabetes mellitus, followed and managed by primary care physician History of hysterectomy, complicated by prolonged infection about 4 years ago Clinical Quality Measures DVT/VTE Risk/Contraindication: Risk Factor Score Per Nursin RFS Level Per Nursing on Admit: 3=High YASIR HOOKER Oct 10, 2018 08:46
--- NOTE | 2018-10-10 09:17 | Cardiology Progress Note ---
Subjective Date Seen by Provider: Oct 10, 2018 Time Seen by Provider: 09:16 Subjective/Events-last exam Patient is in bed, feeling better, no new complaint Review of Systems General: No Chills, No Night Sweats, No Fatigue, No Malaise, No Appetite, No Other HEENT: No Head Aches, No Visual Changes, No Eye Pain, No Ear Pain, No Dysphasia , No Sinus Congestion, No Post Nasal Drip, No Sore Throat, No Other Pulmonary: No Dyspnea, No Cough, No Pleuritic Chest Pain, No Other Cardiovascular: No: Chest Pain, Palpitations, Orthopnea, Paroxysmal Noc. Dyspnea, Edema, Lt Headedness, Other Objective-Cardiology Exam Last Set of Vital Signs Vital Signs 10/07/18 10/10/18 10/10/18 08:38 03:05 08:00 Temp 98.5 Pulse 101 Resp 20 B/P (MAP) 151/90 (110) Pulse Ox 91 O2 Delivery Room Air FiO2 21 Capillary Refill : Less Than 3 SecondsLess Than 3 Seconds I&O Intake and Output 10/10/18 00:00 Intake Total 5645.0 ml Balance 5645.0 ml Intake Oral 2550 ml IV Total 3095.0 ml # Voids 9 Daily Weight Change No General: Alert, Oriented X3, Cooperative HEENT: Atraumatic, PERRLA Neck: Supple, No JVD, No Thyromegaly Lungs: Normal Air Movement, Other (bilateral wheezing) Heart: Regular Rate, Normal S1, Normal S2, No Murmurs Abdomen: Normal Bowel Sounds, Soft, No Tenderness, No Hepatosplenomegaly, No Masses Extremities: No Clubbing, No Cyanosis, No Edema, Normal Pulses, No Tenderness/ Swelling Skin: No Rashes, No Breakdown, No Significant Lesion Neuro: Normal Gait, Normal Speech, Strength at 5/5 X4 Ext, Normal Tone, Sensation Intact Psych/Mental Status: Mental Status NL, Mood NL Results Lab Laboratory Tests 10/09/18 14:37 A/P-Cardiology Admission Diagnosis Sinus tachycardia Hypoxemia Pneumonia Chest pain Assessment/Plan Sinus tachycardia, probably secondary to pneumonia, Had thoracenthesis yesterday , feeling better, no new complaint Hypertension, labile. Maintained on Lopressor and lisinopril . Continue to monitor. Echocardiogram showed pulmonary hypertension with PA pressure of 50 mmHg. Unknown etiology. Could be secondary to COPD or primary pulmonary hypertension. Discussed with Dr. Otoole, planning to repeat echocardiogram once pneumonia is better, it can be done as an outpatient Chest pain, probably secondary to pneumonia and tachycardia. EKG showed sinus tachycardia with no acute abnormality. Pneumonia, receiving antibiotics, managed by primary care physician Pleural effusion-s/p thoracentesis. Diabetes mellitus, followed and managed by primary care physician History of hysterectomy, complicated by prolonged infection about 4 years ago Clinical Quality Measures DVT/VTE Risk/Contraindication: Risk Factor Score Per Nursin RFS Level Per Nursing on Admit: 3=High RICARDO TEE MD Oct 10, 2018 09:17
[2018-10-10] MEDS: meTOprolol TARTRATE 25 MG (LOPRESSOR) TABLET PO SCH ×2 (09:19→21:01)
[2018-10-10] MEDS: lisINopril 10 MG (PRINIVIL) TABLET PO SCH (09:19)
--- NOTE | 2018-10-10 09:21 | NUR ---
prior to b/p medications pulse 93bpm and b/p was 134/81.
[2018-10-10] MEDS: PATCH REMOVAL TP SCH (09:29)
[2018-10-10] MEDS ORDERED: FUROSEMIDE 40 MG/4 ML INJ (LASIX) IVP NR (09:30)
[2018-10-10] MEDS ORDERED: KCL 20 MEQ TAB (K-DUR) PO NR (09:30)
[2018-10-10 10:10] LABS: BASOPHILS % (AUTO) 1 % (0-10); EOSINOPHILS # (AUTO) 0.7 10^3/uL (0.0-0.3); EOSINOPHILS % (AUTO) 8 % (0-10); HEMATOCRIT 33 % (35-52); HEMOGLOBIN 10.5 G/DL (11.5-16.0); LYMPHOCYTES % (AUTO) 12 % (12-44); MEAN CORPUSCULAR HEMOGLOBIN 31 PG (25-34); MEAN CORPUSCULAR HGB CONC 32 G/DL (32-36); MEAN CORPUSCULAR VOLUME 95 FL (80-99); MEAN PLATELET VOLUME 9.4 FL (7.4-10.4); MONOCYTES # (AUTO) 0.8 X 10^3 (0.0-1.0); MONOCYTES % (AUTO) 10 % (0-12); NEUTROPHILS # (AUTO) 5.9 X 10^3 (1.8-7.8); NEUTROPHILS % (AUTO) 70 % (42-75); PLATELET COUNT 484 10^3/uL (130-400); RED CELL DISTRIBUTION WIDTH 12.8 % (10.0-14.5); WHITE BLOOD COUNT 8.4 10^3/uL (4.3-11.0)
[2018-10-10] MEDS: ENOXAPARIN 40 MG/0.4 ML (LOVENOX) SYR SC SCH (10:13)
[2018-10-10] MEDS: PIPERACILLIN/TAZOBACTAM (BULK) 4.5 GM in NS (IVPB) 100 ML IV SCH ×2 (10:14→18:44)
[2018-10-10 10:23] LABS: ALBUMIN 3.2 GM/DL (3.2-4.5); BILIRUBIN,TOTAL 0.4 MG/DL (0.1-1.0); CALCIUM 10.1 MG/DL (8.5-10.1); CREATININE SERUM 1.29 MG/DL (0.60-1.30); MAGNESIUM 1.9 MG/DL (1.8-2.4); PHOSPHORUS 4.4 MG/DL (2.3-4.7); POTASSIUM 4.2 MMOL/L (3.6-5.0); TOTAL PROTEIN 6.6 GM/DL (6.4-8.2)
--- NOTE | 2018-10-10 11:09 | Progress Note-Hospitalist ---
Subjective HPI/CC On Admission Date Seen by Provider: Oct 10, 2018 Time Seen by Provider: 10:00 Pt is a 38yoCF with a PMH of IDDMI who presented to the ER due to cough and SOB. She has been sick since last week with a cough and congestion. She was see by her doctor on 10/02 because she felt so short of breath. He gave her an antibiotic shot and started her on oral antbiotics. She then developed nausea, vomiting, and diarrhea and was unable to keep her antibiotics down. She continued to feel more short of breath with a worsening cough so decided to seek evlauaiton in the ER. She was found to meet sepsis criteria with a LLL PNA and admitted after failing outpatient management. Subjective/Events-last exam Pt doing much better Ambulating well under the direction of the nurse Had a Thoracentesis done and that has helped her shortness of breath a lot Elevated pulmonary artery pressure noted and needs a right heart Cath to evaluate that and that will be completed as an outpatient Likely DC plan or Monday Eating and drinking well Review of Systems General: Fatigue Pulmonary: Dyspnea Objective Exam Vital Signs Vital Signs Date Time Temp Pulse Resp B/P (MAP) Pulse Ox O2 Delivery O2 Flow Rate FiO2 10/10/18 20:16 95 Room Air 10/10/18 16:29 97 21 10/10/18 16:00 98.0 18 173/86 (115) Capillary Refill : Less Than 3 SecondsLess Than 3 Seconds General Appearance: No Apparent Distress, WD/WN Respiratory: No Accessory Muscle Use, No Respiratory Distress, Crackles, Decreased Breath Sounds Cardiovascular: No Edema, No Gallop, No JVD, No Murmur, Normal Peripheral Pulses, Tachycardia Gastrointestinal: Normal Bowel Sounds, Non Tender, Soft Neurologic/Psychiatric: Alert, Oriented x3, Normal Mood/Affect Skin: Normal Color, Warm/Dry, Tattoos/Piercings Results/Procedures Lab Laboratory Tests 10/10/18 09:55 Patient resulted labs reviewed. Assessment/Plan Assessment and Plan Assess & Plan/Chief Complaint Assessment: LLL pneumonia Sepsis Left pleural effusion Pulmonary HTN DM Type 1 OOC Plan: Monitor respiratory status closely Not ready for DC yet Ambulate Diagnosis/Problems Diagnosis/Problems (1) Left lower lobe pneumonia Status: Acute Qualifiers: Pneumonia type: due to unspecified organism Qualified Codes: J18.1 - Lobar pneumonia, unspecified organism (2) Tachycardia Status: Acute (3) Type 1 diabetes Status: Acute Qualifiers: Diabetes mellitus complication status: with hypoglycemia Diabetes mellitus complication detail: without coma Qualified Codes: E10.649 - Type 1 diabetes mellitus with hypoglycemia without coma (4) Pulmonary hypertension Status: Acute (5) Hyperglycemia Status: Acute (6) Sepsis Qualifiers: Sepsis type: sepsis due to unspecified organism Qualified Codes: A41.9 - Sepsis, unspecified organism Clinical Quality Measures DVT/VTE Risk/Contraindication: Risk Factor Score Per Nursin RFS Level Per Nursing on Admit: 3=High NEMESIO PATE DO Oct 10, 2018 11:09
--- NOTE | 2018-10-10 12:52 | Pulmonary Progress Note ---
Subjective Date Seen by a Provider: Oct 09, 2018 (late note) Time Seen by a Provider: 12:51 Subjective/Events-last exam Pt is feeling better. Sepsis Event Evaluation Height, Weight, BMI Height: 5'6.00" Weight: 164lbs. 1.0oz. 74.833894xc; BMI Method:Stated Exam Exam Vital Signs Date Time Temp Pulse Resp B/P (MAP) Pulse Ox O2 Delivery O2 Flow Rate FiO2 10/10/18 09:57 95 Room Air 10/10/18 08:00 98.2 93 16 134/87 (103) 98 Room Air 10/10/18 08:00 91 Room Air 10/10/18 03:05 98.5 101 20 151/90 (110) 91 Room Air 10/10/18 02:45 Room Air 10/10/18 00:00 98.6 101 20 100/59 (73) 91 Room Air 10/09/18 21:26 84 Room Air 10/09/18 20:20 98.5 111 18 169/85 (113) 95 Room Air 10/09/18 19:50 Room Air 10/09/18 16:00 98.5 111 20 182/110 (134) 93 Room Air I & O 10/10/18 07:00 Intake Total 4432.5 ml Balance 4432.5 ml Height & Weight Height: 5'6.00" Weight: 164lbs. 1.0oz. 74.463393wq; BMI Method:Stated General Appearance: No Apparent Distress, WD/WN Respiratory: Lungs Clear, No Accessory Muscle Use, No Respiratory Distress Cardiovascular: No Edema, No Gallop, No JVD, No Murmur, Normal Peripheral Pulses, Tachycardia Capillary Refill: Less Than 3 Seconds Gastrointestinal: normal bowel sounds, non tender, soft Neurologic/Psychiatric: Alert, Oriented x3, Normal Mood/Affect Skin: Normal Color, Warm/Dry, Tattoos/Piercings Results Lab Laboratory Tests 10/09/18 14:37 10/10/18 09:55 Assessment/Plan Assessment/Plan LLL pneumonia with sepsis and small left pleural effusion -Repeat CT of chest with contrast today r/o empyema -Will plan on doing thoracentesis -Leukocytosis - improving -Continue IVF -Continue Zosyn and Vanco -Monitor close -Calix cultures -CT of chest reviewed -Pt will need continued radiologic f/u until complete resolution Pulmonary HTN - per echo -- probably secondary to PNA with sepsis and hypoxia -This will need to be repeated 3 mo after discharge to ensure improvement. If pulmonary pressures are still elevated at that time she will need a right heart cath. chronically uncontrolled Type 1 DM - with hyperglycemia -Hba1c - is 11 -Insulin Tobacco and Marijuana use - denies other drugs -Education Metabolic acidosis -IVF -Monitor Atelectasis - secondary to pneumonia -SVNS -IS -increase activity as tolerated Pleuritic CP secondary to pna normocytic Anemia -Probably dilutional -Monitor -Check Occult stool -Start Protonix PO JESSY GARCIA DO Oct 10, 2018 12:52
--- NOTE | 2018-10-10 12:54 | Pulmonary Progress Note ---
Subjective Time Seen by a Provider: 12:53 Subjective/Events-last exam Pt feels improved. Sepsis Event Evaluation Height, Weight, BMI Height: 5'6.00" Weight: 164lbs. 1.0oz. 74.768933wr; BMI Method:Stated Exam Exam Vital Signs Date Time Temp Pulse Resp B/P (MAP) Pulse Ox O2 Delivery O2 Flow Rate FiO2 10/10/18 09:57 95 Room Air 10/10/18 08:00 98.2 93 16 134/87 (103) 98 Room Air 10/10/18 08:00 91 Room Air 10/10/18 03:05 98.5 101 20 151/90 (110) 91 Room Air 10/10/18 02:45 Room Air 10/10/18 00:00 98.6 101 20 100/59 (73) 91 Room Air 10/09/18 21:26 84 Room Air 10/09/18 20:20 98.5 111 18 169/85 (113) 95 Room Air 10/09/18 19:50 Room Air 10/09/18 16:00 98.5 111 20 182/110 (134) 93 Room Air I & O 10/10/18 07:00 Intake Total 4432.5 ml Balance 4432.5 ml Height & Weight Height: 5'6.00" Weight: 164lbs. 1.0oz. 74.916677xt; BMI Method:Stated General Appearance: No Apparent Distress, WD/WN Respiratory: Lungs Clear, No Accessory Muscle Use, No Respiratory Distress Cardiovascular: No Edema, No Gallop, No JVD, No Murmur, Normal Peripheral Pulses, Tachycardia Capillary Refill: Less Than 3 Seconds Gastrointestinal: normal bowel sounds, non tender, soft Neurologic/Psychiatric: Alert, Oriented x3, Normal Mood/Affect Skin: Normal Color, Warm/Dry, Tattoos/Piercings Results Lab Laboratory Tests 10/09/18 14:37 10/10/18 09:55 Assessment/Plan Assessment/Plan LLL pneumonia with sepsis and small left pleural effusion -s/p thoracentesis 10/09 -Give lasix 60mg IV X 1 and repeat CXR in AM -D/C vanco -Continue Zosyn -Monitor close -Calix cultures -CT of chest reviewed -Pt will need continued radiologic f/u until complete resolution Pulmonary HTN - per echo -- probably secondary to PNA with sepsis and hypoxia -This will need to be repeated 3 mo after discharge to ensure improvement. If pulmonary pressures are still elevated at that time she will need a right heart cath. chronically uncontrolled Type 1 DM - with hyperglycemia -Hba1c - is 11 -Insulin Tobacco and Marijuana use - denies other drugs -Education Metabolic acidosis -IVF -Monitor Atelectasis - secondary to pneumonia -SVNS -IS -increase activity as tolerated Pleuritic CP secondary to pna normocytic Anemia -Probably dilutional -Monitor -Check Occult stool -Start Protonix PO JESSY GARCIA DO Oct 10, 2018 12:54
--- NOTE | 2018-10-10 12:55 | Pulmonary Procedures ---
Pulmonary Procedures Date of Procedure Date of Service: Oct 09, 2018 (late note today is 10/10. ) Procedure: US guided complex thoracentesis Preop DX: pleural effusion post op DX: Same 1000cc of yellow fluid obtained Complications: None After informed consent obtained US was used to localize pleural fluid. Pt has [ bilateral L>R] pleural effusions. Skin was anesthetized at approximately the 10th ICS posterior axillary line. Thoracentesis needle was advanced through the 10th ICS posterior axillary line. Needle was removed and catheter left in place.1500cc of yellow fluid obtained using vacuum bottles. Catheter was then removed. Pt tolerated procedure well. No complications noted. JESSY GARCIA DO Oct 10, 2018 12:55
[2018-10-10] MEDS: ACETAMINOPHEN 325 MG TABLET PO PRN (13:59)
[2018-10-10] MEDS: LIDOCAINE 4% (SALONPAS) PATCH TOP SCH (20:02)
[2018-10-10] MEDS: MELATONIN 3 MG TABLET PO PRN (20:05)
[2018-10-10] MEDS: APAP W/CODEINE ELIXIR 12.5 ML (TYLENOL W/CODEINE) PO PRN (21:06)
[2018-10-10] MEDS: BENZONATATE 100 MG (TESSALON) CAPSULE PO PRN (21:07)
[2018-10-11 00:16] VITALS: BP 112/60
[2018-10-11] MEDS: PIPERACILLIN/TAZOBACTAM (BULK) 4.5 GM in NS (IVPB) 100 ML IV SCH ×2 (02:44→11:45)
[2018-10-11] MEDS: inSUlin ASPART (NovoLOG) 1 UNIT/0.01 ML (CHARGE PER UNIT) SC SCH ×2 (05:44→11:32)
[2018-10-11] MEDS: APAP W/CODEINE ELIXIR 12.5 ML (TYLENOL W/CODEINE) PO PRN (06:21)
[2018-10-11 08:00] VITALS: BP 156/82
[2018-10-11] MEDS: RT-ALBUTEROL/IPRATROPIUM 3 ML (DUONEB) VIAL INH SCH (08:04)
[2018-10-11] MEDS: lisINopril 10 MG (PRINIVIL) TABLET PO SCH (08:19)
[2018-10-11] MEDS: PATCH REMOVAL TP SCH (08:20)
[2018-10-11] MEDS: meTOprolol TARTRATE 25 MG (LOPRESSOR) TABLET PO SCH (08:20)
[2018-10-11] MEDS ORDERED: LISI10TA2 PO (10:56)
[2018-10-11] MEDS ORDERED: METO-333 PO (10:56)
[2018-10-11] MEDS ORDERED: AMOX-358 PO (10:56)
--- NOTE | 2018-10-11 10:58 | Discharge Summary-Hospitalist ---
Diagnosis/Chief Complaint Date of Admission Oct 04, 2018 at 14:03 Date of Discharge Discharge Date: Oct 11, 2018 Admission Diagnosis Sepsis Discharge Diagnosis (1) Left lower lobe pneumonia Status: Acute (2) Tachycardia Status: Acute (3) Type 1 diabetes Status: Acute (4) Pulmonary hypertension Status: Acute (5) Hyperglycemia Status: Acute (6) Sepsis Discharge Summary Discharge Physical Exam Allergies: Coded Allergies: carbamazepine (Verified Allergy, Unknown, 10/04/18) Vitals & I&Os Vital Signs Date Time Temp Pulse Resp B/P (MAP) Pulse Ox O2 Delivery O2 Flow Rate FiO2 10/11/18 08:04 95 Room Air 10/11/18 08:00 97.9 95 18 156/82 (106) 10/10/18 16:29 21 General Appearance: No Apparent Distress, WD/WN Respiratory: Chest Non Tender, Lungs Clear, Normal Breath Sounds, No Accessory Muscle Use, No Respiratory Distress Cardiovascular: Regular Rate, Rhythm, No Edema, No Gallop, No JVD, No Murmur, Normal Peripheral Pulses Neurologic/Psychiatric: Alert, Oriented x3, No Motor/Sensory Deficits, Normal Mood/Affect Hospital Course Was the Problem List Reviewed?: Yes Hospital course: Patient had a lengthy hospital course after she was admitted with left lower lobe pneumonia and sepsis and [id number] diabetes. Tachycardia required beta sushil. IV fluid resuscitation was tolerated. Pulmonology and cardiology appreciated. Pulmonary hypertension noted and will be addressed with a possible right heart catheter if that continues after pneumonia completely resolved and recovered. Patient tolerated antibiotics. Patient did not require any home oxygen at discharge. She will continue antibiotics for 2 more days. Compliance with insulin was recommended along with cessation of smoking and illicit drug use. Labs (last 24 hrs) Laboratory Tests 10/10/18 16:40: Glucometer 325H 10/10/18 20:29: Glucometer 226H 10/11/18 05:28: Glucometer 85 10/11/18 06:16: Glucometer 49*L 10/11/18 06:41: Glucometer 70 10/11/18 07:25: Glucometer 95 10/11/18 11:09: Glucometer 181H Microbiology 10/04/18 Blood Culture - Final, Complete No growth 10/09/18 Gram Stain - Final, Resulted 10/09/18 Body Fluid Culture - Preliminary, Resulted No growth 3/29/19 Influenza Types A,B Antigen (NIA) - Final, Complete Patient resulted labs reviewed. Pending Labs Laboratory Tests 10/11/18 05:28: Glucometer 85 10/11/18 06:16: Glucometer 49 10/11/18 06:41: Glucometer 70 10/11/18 07:25: Glucometer 95 10/11/18 11:09: Glucometer 181 Discussion & Recommendations Discharge Planning: <30 minutes discharge planning Discharge Home Medications: Active Scripts Active Lisinopril 10 Mg Tablet 10 Mg PO DAILY Metoprolol Tartrate 25 Mg Tablet 12.5 Mg PO BID Augmentin 875-125 Tablet (Amoxicillin/Potassium Clav) 1 Each Tablet 1 Each PO BID Reported Humalog (Insulin Lispro) 100 Unit/1 Ml Vial 2-6 Unit SQ TIDAC Levemir (Insulin Determir) 1,000 Units/10 Ml Soln 30 Units SQ HS Instructions to patient/family Please see electronic discharge instructions given to patient. Clinical Quality Measures DVT/VTE Risk/Contraindication: Risk Factor Score Per Nursin RFS Level Per Nursing on Admit: 3=High Problem Qualifiers (1) Left lower lobe pneumonia: Pneumonia type: due to unspecified organism Qualified Codes: J18.1 - Lobar pneumonia, unspecified organism (2) Type 1 diabetes: Diabetes mellitus complication status: with hypoglycemia Diabetes mellitus complication detail: without coma Qualified Codes: E10.649 - Type 1 diabetes mellitus with hypoglycemia without coma (3) Sepsis: Sepsis type: sepsis due to unspecified organism Qualified Codes: A41.9 - Sepsis, unspecified organism NEMESIO PATE DO Oct 11, 2018 10:57
--- NOTE | 2018-10-11 11:00 | NUR ---
PT ENCOURAGED TO TAKE 1100 DOSE OF ZOSYN. STATES "I DO NOT WANT TO STAY HERE 4 HOURS FOR ABX." DOCUMENTED REFUSED.
[2018-10-11] MEDS: ENOXAPARIN 40 MG/0.4 ML (LOVENOX) SYR SC SCH (11:45)
--- NOTE | 2018-10-11 11:57 | Diagnostic Imaging Report ---
Indication: Followup pneumonia. Time of exam 11:15 AM Correlation is made with prior study from 10/09/2018. Airspace infiltrate left upper lobe persists. Left-sided effusion is noted may be slightly increased since prior. There is some minimal basilar infiltrate on the right as well which may be slightly increased. No pneumothorax is seen. Impression: Bilateral infiltrates. There may be some developing infiltrate in the right base since 2 days earlier. In addition, small left effusion appears to be slightly increased. Dictated by: Dictated on workstation # [id number]
--- NOTE | 2018-10-11 13:28 | NUR ---
DC'D AMBULATORY WITH MOTHER AND TOBACCO SIZER. RX AND INST AND VERBALIZED UNDERSTANDING.
--- NOTE | 2018-10-11 15:58 | Cardiology Progress Note ---
Subjective Date Seen by Provider: Oct 11, 2018 Time Seen by Provider: 08:10 Subjective/Events-last exam patient is sitting in a chair, feeling better. Asking to go home Review of Systems General: No Chills, No Night Sweats, No Fatigue, No Malaise, No Appetite, No Other HEENT: No Head Aches, No Visual Changes, No Eye Pain, No Ear Pain, No Dysphasia , No Sinus Congestion, No Post Nasal Drip, No Sore Throat, No Other Pulmonary: No Dyspnea, No Cough, No Pleuritic Chest Pain, No Other Cardiovascular: No: Chest Pain, Palpitations, Orthopnea, Paroxysmal Noc. Dyspnea, Edema, Lt Headedness, Other Objective-Cardiology Exam Last Set of Vital Signs Vital Signs 10/10/18 10/11/18 10/11/18 16:29 08:00 08:04 Temp 97.9 Pulse 95 Resp 18 B/P (MAP) 156/82 (106) Pulse Ox 95 O2 Delivery Room Air FiO2 21 Capillary Refill : Less Than 3 SecondsLess Than 3 Seconds I&O Intake and Output 10/11/18 00:00 Intake Total 3080 ml Balance 3080 ml Intake Oral 2600 ml IV Total 480 ml # Voids 12 # Bowel Movements 2 Daily Weight Change Unsure General: Alert, Oriented X3, Cooperative HEENT: Atraumatic, PERRLA Neck: Supple, No JVD, No Thyromegaly Lungs: Normal Air Movement, Other (bilateral wheezing) Heart: Regular Rate, Normal S1, Normal S2, No Murmurs Abdomen: Normal Bowel Sounds, Soft, No Tenderness, No Hepatosplenomegaly, No Masses Extremities: No Clubbing, No Cyanosis, No Edema, Normal Pulses, No Tenderness/ Swelling Skin: No Rashes, No Breakdown, No Significant Lesion Neuro: Normal Gait, Normal Speech, Strength at 5/5 X4 Ext, Normal Tone, Sensation Intact Psych/Mental Status: Mental Status NL, Mood NL Results Lab Laboratory Tests Test 10/10/18 16:40 10/10/18 20:29 10/11/18 05:28 10/11/18 06:16 Range/Units Glucometer 325 H 226 H 85 49 *L 70-110 MG/DL Test 10/11/18 06:41 10/11/18 07:25 10/11/18 11:09 Range/Units Glucometer 70 95 181 H 70-110 MG/DL A/P-Cardiology Admission Diagnosis Sinus tachycardia Hypoxemia Pneumonia Chest pain Assessment/Plan Sinus tachycardia, probably secondary to pneumonia, Had thoracentesis yesterday , feeling better, no new complaint Hypertension, labile. Maintained on Lopressor and lisinopril . Continue to monitor. Echocardiogram showed pulmonary hypertension with PA pressure of 50 mmHg. Unknown etiology. Could be secondary to COPD or primary pulmonary hypertension. Discussed with Dr. Ootole, planning to repeat echocardiogram once pneumonia is better, it can be done as an outpatient Chest pain, probably secondary to pneumonia and tachycardia. EKG showed sinus tachycardia with no acute abnormality. Pneumonia, receiving antibiotics, managed by primary care physician Pleural effusion-s/p thoracentesis. Diabetes mellitus, followed and managed by primary care physician History of hysterectomy, complicated by prolonged infection about 4 years ago Clinical Quality Measures DVT/VTE Risk/Contraindication: Risk Factor Score Per Nursin RFS Level Per Nursing on Admit: 3=High RICARDO TEE MD Oct 11, 2018 15:58
[2018-10-15] MEDS ORDERED: PIPERACILLIN/TAZOBACTAM (BULK) 4.5 GM in NS (IVPB) 100 ML IV SCH (20:00)
== END 2018-10-11 13:30 | disposition home or self-care (01) | DRG 871 ==
LOC: EDUNIT# 13:05 → ER 13:06 → 4TH 14:03
PROVIDERS: ADMIT Family Medicine; ATTEND Family Medicine
PROC: 0W9B3ZZ Drainage of Left Pleural Cavity, Percutaneous Approach (ICD-10-PCS; principal; 2018-10-09)
DX: A41.9 Sepsis, unspecified organism (principal); J18.1 Lobar pneumonia, unspecified organism; J90 Pleural effusion, not elsewhere classified; E87.2 Acidosis; E87.1 Hypo-osmolality and hyponatremia; J98.11 Atelectasis; E10.65 Type 1 diabetes mellitus with hyperglycemia; E10.649 Type 1 diabetes mellitus with hypoglycemia without coma; I27.20 Pulmonary hypertension, unspecified; R09.02 Hypoxemia; R07.81 Pleurodynia; R00.0 Tachycardia, unspecified; D64.9 Anemia, unspecified; R11.2 Nausea with vomiting, unspecified; R19.7 Diarrhea, unspecified; F17.210 Nicotine dependence, cigarettes, uncomplicated; Z79.4 Long term (current) use of insulin
CPT/HCPCS: 36415; 36600; 71045; 71046; 71260; 71275; 76604; 80048; 80053; 80202; 81000; 82010; 82274; 82805; 82945; 82962; 83036; 83605; 83615; 83735; 83880; 83986; 84100; 84157; 85007; 85025; 85027; 87040; 87070; 87081; 87205; 87804; 89051; 93005; 93306; 93970; 94640; 94664; 94760; 96361; 96365; 96375

== ENCOUNTER 2020-04-24 10:54 | Emergency (ER) | payer BC ==
[~2020-04-24] VITALS: Ht 165 cm; Wt 79.0 kg
[~2020-04-24 10:54] MED LIST changes: +AMOX-358 PO; +DEXT236S PO; +INSU100V SQ; +LEVO500T80 PO; +LISI10TA2 PO; +METO-333 PO
--- NOTE | 2020-04-24 11:13 | ED GI ---
General Stated Complaint: RT FLANK PAIN; VOMITING History of Present Illness Date Seen by Provider: Apr 24, 2020 Time Seen by Provider: 11:05 Initial Comments 39-year-old female presents with right sided mid back and flank pain which is been present for the past 5 days intermittently, waxing and waning but now worse. Today had onset of nausea vomiting and feeling much more comfortable. Saw her primary doctor yesterday and had labs and urine checked, no imaging. Denies history of kidney stones. She is type I diabetic on insulin. Allergies and Home Medications Allergies Coded Allergies: carbamazepine (Verified Allergy, Unknown, 10/04/18) Home Medications Amoxicillin/Potassium Clav 1 Each Tablet, 1 EACH PO BID Prescribed by: NEMESIO PATE on 10/11/18 1056 Insulin Determir 1,000 Units/10 Ml Soln, 30 UNITS SQ HS, (Reported) Insulin Lispro 100 Unit/1 Ml Vial, 2-6 UNIT SQ TIDAC, (Reported) Lisinopril 10 Mg Tablet, 10 MG PO DAILY Prescribed by: NEMESIO PATE on 10/11/18 1056 Metoprolol Tartrate 25 Mg Tablet, 12.5 MG PO BID Prescribed by: NEMESIO PATE on 10/11/18 1056 Ondansetron 4 Mg Tab.rapdis, 4 MG PO TID Prescribed by: YEIMY PAT on 04/24/20 1219 Polyethylene Glycol 3350 17 Gm Powd.pack, 17 GM PO DAILY PRN Prescribed by: YEIMY PAT on 04/24/20 1219 Patient Home Medication List Home Medication List Reviewed: Yes Review of Systems Review of Systems Constitutional: see HPI; No chills, No dizziness, No fever; malaise; No weakness EENTM: No Symptoms Reported Respiratory: No Symptoms Reported; Denies Cough, Denies Shortness of Air Cardiovascular: Denies Chest Pain, Denies Edema, Denies Palpitations, Denies Syncope Gastrointestinal: See HPI; Denies Abdomen Distended; Abdominal Pain (R flank and RUQ); Denies Constipated; Nausea, Poor Appetite, Vomiting Genitourinary: See HPI; Denies Burning, Denies Discharge, Denies Drainage, Denies Frequency; Flank Pain; Denies Hematuria Musculoskeletal: back pain; No joint pain, No muscle pain, No neck pain Skin: No lesions, No rash Psychiatric/Neurological: No Symptoms Reported Past [place]-Bfiqtw Hx Past Med/Social Hx: Reviewed Nursing Past Med/Soc Hx Patient Social History Type Used: Cigarettes 2nd Hand Smoke Exposure: Yes Recent Foreign Travel: No Contact w/Someone Who Travel: No Recent Hopitalizations: No Immunizations Up To Date Date of Influenza Vaccine: May 10, 2018 Seasonal Allergies Seasonal Allergies: No Past Medical History Surgeries: Yes Hysterectomy Respiratory: Yes Pneumonia Cardiac: No Neurological: No 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 1.0oz. 74.898451dv; BMI Method:Stated General Appearance: WD/WN, no apparent distress Respiratory: chest non-tender, lungs clear, normal breath sounds, no respiratory distress, no accessory muscle use Cardiovascular: regular rate, rhythm, no edema, no JVD Gastrointestinal: normal bowel sounds, soft, no organomegaly, no pulsatile mass; No distended, No guarding, No rebound; tenderness (RUQ); No hernia, No mass, No hepatomegaly, No spleenomegaly Extremities: non-tender, normal inspection Back: normal inspection, CVA tenderness (R) Neurologic/Psychiatric: alert, normal mood/affect Skin: normal color, warm/dry Progress/Results/Core Measures Results/Orders Lab Results Laboratory Tests Test 04/24/20 11:05 Range/Units White Blood Count 7.7 4.3-11.0 10^3/uL Red Blood Count 4.76 4.35-5.85 10^6/uL Hemoglobin 14.3 11.5-16.0 G/DL Hematocrit 42 35-52 % Mean Corpuscular Volume 87 80-99 FL Mean Corpuscular Hemoglobin 30 25-34 PG Mean Corpuscular Hemoglobin Concent 35 32-36 G/DL Red Cell Distribution Width 11.9 10.0-14.5 % Platelet Count 326 130-400 10^3/uL Mean Platelet Volume 10.6 H 7.4-10.4 FL Immature Granulocyte % (Auto) 0 % Neutrophils (%) (Auto) 75 42-75 % Lymphocytes (%) (Auto) 15 12-44 % Monocytes (%) (Auto) 4 0-12 % Eosinophils (%) (Auto) 6 0-10 % Basophils (%) (Auto) 0 0-10 % Neutrophils # (Auto) 5.8 1.8-7.8 X 10^3 Lymphocytes # (Auto) 1.1 1.0-4.0 X 10^3 Monocytes # (Auto) 0.3 0.0-1.0 X 10^3 Eosinophils # (Auto) 0.5 H 0.0-0.3 10^3/uL Basophils # (Auto) 0.0 0.0-0.1 10^3/uL Immature Granulocyte # (Auto) 0.0 0.0-0.1 10^3/uL Sodium Level 135 135-145 MMOL/L Potassium Level 4.6 3.6-5.0 MMOL/L Chloride Level 97 L 98-107 MMOL/L Carbon Dioxide Level 23 21-32 MMOL/L Anion Gap 15 H 5-14 MMOL/L Blood Urea Nitrogen 22 H 7-18 MG/DL Creatinine 0.80 0.60-1.30 MG/DL Estimat Glomerular Filtration Rate > 60 BUN/Creatinine Ratio 28 Glucose Level 288 H 70-105 MG/DL Calcium Level 10.9 H 8.5-10.1 MG/DL Corrected Calcium 8.5-10.1 MG/DL Total Bilirubin 0.4 0.1-1.0 MG/DL Aspartate Amino Transf (AST/SGOT) 24 5-34 U/L Alanine Aminotransferase (ALT/SGPT) 29 0-55 U/L Alkaline Phosphatase 245 H 40-136 U/L Total Protein 8.4 H 6.4-8.2 GM/DL Albumin 4.7 H 3.2-4.5 GM/DL Lipase 9 8-78 U/L My Orders Orders - KENSTYEIMY AQUINO DO Ed Iv/Invasive Line Start (04/24/20 11:10) Ct Abdomen/Pelvis Wo (04/24/20 11:10) Cbc With Automated Diff (04/24/20 11:10) Comprehensive Metabolic Panel (04/24/20 11:10) Urinalysis (04/24/20 11:10) Hcg,Qualitative Urine (04/24/20 11:10) Lipase (04/24/20 11:10) Ns Iv 1000 Ml (Sodium Chloride 0.9%) (04/24/20 11:15) Ketorolac Injection (Toradol Injection) (04/24/20 11:15) Ondansetron Injection (Zofran Injectio (04/24/20 11:15) Ondansetron Injection (Zofran Injectio (04/24/20 12:00) Medications Given in ED Current Medications Medications Dose Ordered Sig/Felicitas Route Start Time Stop Time Status Last Admin Dose Admin Ketorolac Tromethamine 30 mg ONCE ONCE IVP 04/24/20 11:15 04/24/20 11:16 DC 04/24/20 11:26 30 MG Ondansetron HCl 4 mg ONCE ONCE IVP 04/24/20 11:15 04/24/20 11:16 DC 04/24/20 11:26 4 MG Ondansetron HCl 4 mg ONCE ONCE IVP 04/24/20 12:00 04/24/20 12:01 DC 04/24/20 11:53 4 MG Vital Signs/I&O 04/24/20 10:56 Temp 34.8 Pulse 106 Resp 16 B/P (MAP) 192/96 (128) Pulse Ox 100 O2 Delivery Room Air Departure Impression Primary Impression: Abdominal pain Qualified Codes: R10.11 - Right upper quadrant pain Additional Impression: Constipation Qualified Codes: K59.00 - Constipation, unspecified Disposition: HOME, SELF-CARE Condition: Improved Departure-Patient Inst. Decision time for Depature: 12:18 Referrals: ANITHA DE LA CRUZ MD (PCP/Family) Primary Care Physician Patient Instructions: Clear Liquid Diet, Constipation, Adult (DC), Severe Abdominal Pain, Adult (DC) Add. Discharge Instructions: Follow up with Dr De La Cruz early next week if not improving, ER sooner if worse Scripts Polyethylene Glycol 3350 (Miralax) 17 Gm Powd.pack 17 GM PO DAILY PRN, #10 EACH Prov: ROVENSTINEYEIMY DO 04/24/20 Ondansetron (Ondansetron Odt) 4 Mg Tab.rapdis 4 MG PO TID for Nausea, #12 TAB Prov: ROVENSTINEYEIMY L DO 04/24/20 Work/School Note: Work Release Form Date Seen in the Emergency Department: Apr 24, 2020 Return to Work: Apr 27, 2020 YEIMY PAT DO Apr 24, 2020 11:13
[2020-04-24] MEDS ORDERED: ONDANSETRON 4 MG/2 ML (SDV) Z0FRAN IVP ONE ×2 (11:15→12:00)
[2020-04-24] MEDS ORDERED: KETOROLAC 30 MG/ML VIAL IVP ONE (11:15)
[2020-04-24] MEDS ORDERED: NS IV 1000 ML 1,000 ML IV SCH (11:15)
[2020-04-24 11:19] LABS: HEMATOCRIT 42 % (35-52); HEMOGLOBIN 14.3 G/DL (11.5-16.0); MEAN CORPUSCULAR HEMOGLOBIN 30 PG (25-34); MEAN CORPUSCULAR HGB CONC 35 G/DL (32-36); MEAN CORPUSCULAR VOLUME 87 FL (80-99); MEAN PLATELET VOLUME 10.6 FL (7.4-10.4); NEUTROPHILS % (AUTO) 75 % (42-75); PLATELET COUNT 326 10^3/uL (130-400); WHITE BLOOD COUNT 7.7 10^3/uL (4.3-11.0)
[2020-04-24 11:20] LABS: BASOPHILS % (AUTO) 0 % (0-10); EOSINOPHILS # (AUTO) 0.5 10^3/uL (0.0-0.3); EOSINOPHILS % (AUTO) 6 % (0-10); LYMPHOCYTES # (AUTO) 1.1 X 10^3 (1.0-4.0); LYMPHOCYTES % (AUTO) 15 % (12-44); MONOCYTES # (AUTO) 0.3 X 10^3 (0.0-1.0); MONOCYTES % (AUTO) 4 % (0-12); NEUTROPHILS # (AUTO) 5.8 X 10^3 (1.8-7.8)
[2020-04-24 11:42] LABS: SODIUM 135 MMOL/L (135-145)
[2020-04-24 11:43] LABS: ALANINE AMINOTRANSFERASE 29 U/L (0-55); ALBUMIN 4.7 GM/DL (3.2-4.5); ALKALINE PHOSPHATASE 245 U/L (40-136); BILIRUBIN,TOTAL 0.4 MG/DL (0.1-1.0); BUN/CREATININE RATIO 28; CALCIUM 10.9 MG/DL (8.5-10.1); CARBON DIOXIDE 23 MMOL/L (21-32); CHLORIDE 97 MMOL/L (98-107); GFR ESTIMATED > 60; GLUCOSE 288 MG/DL (70-105); LIPASE 9 U/L (8-78); POTASSIUM 4.6 MMOL/L (3.6-5.0); TOTAL PROTEIN 8.4 GM/DL (6.4-8.2)
--- NOTE | 2020-04-24 11:46 | NUR ---
CONTINUES TO COMPLAIN OF NAUSEA. NOTIFIED.
--- NOTE | 2020-04-24 12:09 | Diagnostic Imaging Report ---
PROCEDURE: CT abdomen and pelvis without contrast. TECHNIQUE: Multiple contiguous axial images were obtained through the abdomen and pelvis without the use of intravenous contrast. Auto Exposure Controls were utilized during the CT exam to meet ALARA standards for radiation dose reduction. INDICATION: Right flank pain. Nausea and vomiting. COMPARISON: 10/09/2018. FINDINGS: Included portions of the lung bases are clear. CT abdomen: No renal or ureteral calculi are seen on either side. Additionally, there is no hydronephrosis or other evidence of obstruction. Kidneys have an otherwise unremarkable noncontrast CT appearance. Multiple gallstones are noted. Gallbladder appears only mildly distended. There is no appreciable gallbladder wall thickening nor pericholecystic free fluid. The liver, spleen, and pancreas have an unremarkable noncontrast CT appearance. Small bowel loops are nondistended. Normal appendix is identified. There is moderate colonic air and stool scattered throughout. There is no loculated fluid collection free fluid or free air within the abdomen. No abnormal mesenteric or retroperitoneal adenopathy is seen. Osseous structures show no acute abnormalities. CT pelvis: Urinary bladder is unopacified. No calculi are seen within urinary bladder. There is no loculated fluid collection, free fluid or free air. No abnormal lymph nodes are seen. Osseous structures show no acute abnormalities. IMPRESSION: 1. Unremarkable noncontrast CT of the kidneys and renal collecting systems. 2. Cholelithiasis, but no convincing CT evidence of acute cholecystitis. 3. Moderate colonic air and stool. Please correlate for constipation. Dictated by: Dictated on workstation # [id number]
[2020-04-24] MEDS ORDERED: ONDA4TAB11 PO (12:19)
[2020-04-24] MEDS ORDERED: POLY17PO6 PO (12:19)
[2020-04-24 12:53] VITALS: BP 191/100
== END 2020-04-24 12:53 | disposition home or self-care (01) ==
LOC: EDUNIT# 10:54 → ER FS 10:56
DX: R10.11 Right upper quadrant pain (principal); K59.00 Constipation, unspecified; E10.9 Type 1 diabetes mellitus without complications; Z77.22 Contact with and (suspected) exposure to environmental tobacco smoke (acute) (chronic); Z88.8 Allergy status to other drugs, medicaments and biological substances
CPT/HCPCS: 74176; 80053; 83690

== ENCOUNTER 2020-04-26 14:18 | Emergency (ER) | payer BC ==
[~2020-04-26] VITALS: Ht 167.4 cm; Wt 81.8 kg
[~2020-04-26 14:18] MED LIST changes: +ONDA4TAB11 PO; +POLY17PO6 PO
[2020-04-26] MEDS ORDERED: NS IV 1000 ML 1,000 ML IV SCH (14:35)
[2020-04-26] MEDS ORDERED: inSUlin (REGULAR) HUMAN 1 UNIT/0.01 ML (CHARGE PER UNIT) IV STA (14:38)
[2020-04-26 14:45] LABS: BASOPHILS % (AUTO) 0 % (0-10); EOSINOPHILS % (AUTO) 0 % (0-10); HEMATOCRIT 37 % (35-52); HEMOGLOBIN 12.8 g/dL (11.5-16.0); LYMPHOCYTES # (AUTO) 1.4 10^3/uL (1.0-4.0); LYMPHOCYTES % (AUTO) 10 % (12-44); MEAN CORPUSCULAR HEMOGLOBIN 30 pg (25-34); MEAN CORPUSCULAR HGB CONC 34 g/dL (32-36); MEAN CORPUSCULAR VOLUME 86 fL (80-99); MEAN PLATELET VOLUME 10.8 fL (9.0-12.2); MONOCYTES # (AUTO) 1.3 10^3/uL (0.0-1.0); MONOCYTES % (AUTO) 9 % (0-12); NEUTROPHILS # (AUTO) 11.8 10^3/uL (1.8-7.8); NEUTROPHILS % (AUTO) 81 % (42-75); PLATELET COUNT 394 10^3/uL (130-400); WHITE BLOOD COUNT 14.6 10^3/uL (4.3-11.0)
[2020-04-26] MEDS ORDERED: ONDANSETRON 4 MG/2 ML (SDV) Z0FRAN IVP ONE (14:45)
[2020-04-26 14:50] LABS: ALBUMIN 4.3 GM/DL (3.2-4.5); POTASSIUM 4.4 MMOL/L (3.6-5.0)
[2020-04-26 14:51] LABS: CALCIUM 10.9 MG/DL (8.5-10.1)
[2020-04-26 14:52] LABS: TOTAL PROTEIN 7.6 GM/DL (6.4-8.2)
[2020-04-26 14:54] LABS: BILIRUBIN,TOTAL 0.6 MG/DL (0.1-1.0)
[2020-04-26 14:56] LABS: CREATININE SERUM 1.87 MG/DL (0.60-1.30)
[2020-04-26 14:57] LABS: BAND NEUTROPHILS 2 %; LYMPHOCYTES % (MANUAL) 10 %; MONOCYTES % (MANUAL) 10 %; NEUTROPHILS % (MANUAL) 78 %; RBC MORPH NORMAL
--- NOTE | 2020-04-26 14:58 | ED General ---
General Chief Complaint: Glucose Problems Stated Complaint: ELEV BS, N/V Nursing Triage Note: AMB TO ED REPORTS ON SUN HAD ONSET OF BACK PAIN WAS SEEN BY HER DR ON MONDAY. FOR BACK PAIN AND VOMITING WAS SEEN IN [facility] ON MONDAY. DX WITH CONSTIPATION.CON'T TO VOMIT. BS HAS BEEN HIGH Nursing Sepsis Screen: No Definite Risk History of Present Illness Date Seen by Provider: Apr 26, 2020 Time Seen by Provider: 14:25 Initial Comments 39-year-old female reports a 3 day history of nausea and vomiting with hyperglycemia. She has been seen at the emergency Department in [place] and by her nurse practitioner that manages her diabetes. She was diagnosed with constipation and started on MiraLAX, she did not take any of the MiraLAX but does report having 3 stools. She reports taking 35 units of Levemir at 0600 this morning her glucometer has been reading high. She gave 5 units of Humalog at 0600 additional units at 1100. There were concerns that she possibly had a kidney stone. She denies any further back pain today. She does have mild abdominal pain and a sore throat from multiple episodes of vomiting. [employer] CH[employer] CAREGIVER noted blood in urine and started her on Antibiotic 04/23/20, she had one dose and hasn't taken more, due to nausea. Unsure of most recent Hgb A1c, 10/04/18 it was 11.1 Timing/Duration: 2-3 Days Associated Systoms: No Chest Pain, No Cough, No Diaphoresis, No Fever/Chills; Loss of Appetite, Malaise, Nausea/Vomiting; No Shortness of Air, No Weakness Allergies and Home Medications Allergies Coded Allergies: carbamazepine (Verified Allergy, Unknown, 10/04/18) Home Medications Amoxicillin/Potassium Clav 1 Each Tablet, 1 EACH PO BID Prescribed by: NEMESIO PATE on 10/11/18 1056 Insulin Determir 1,000 Units/10 Ml Soln, 30 UNITS SQ HS, (Reported) Insulin Lispro 100 Unit/1 Ml Vial, 2-6 UNIT SQ TIDAC, (Reported) Lisinopril 10 Mg Tablet, 10 MG PO DAILY Prescribed by: NEMESIO PATE on 10/11/18 1056 Metoprolol Tartrate 25 Mg Tablet, 12.5 MG PO BID Prescribed by: NEMESIO PATE on 10/11/18 1056 Ondansetron 4 Mg Tab.rapdis, 4 MG PO TID Prescribed by: YEIMY PAT on 04/24/20 1219 Polyethylene Glycol 3350 17 Gm Powd.pack, 17 GM PO DAILY PRN Prescribed by: YEIMY PAT on 04/24/20 1219 Patient Home Medication List Home Medication List Reviewed: Yes Review of Systems Review of Systems Constitutional: see HPI, malaise EENTM: see HPI, no symptoms reported Respiratory: no symptoms reported, see HPI; No cough, No short of breath Cardiovascular: no symptoms reported, see HPI; No chest pain Gastrointestinal: see HPI; No constipation, No diarrhea; loss of appetite, nausea, vomiting Genitourinary: no symptoms reported, see HPI Musculoskeletal: no symptoms reported, see HPI; No back pain Skin: no symptoms reported, see HPI All Other Systems Reviewed Negative Unless Noted: Yes Past Nvkuqmn-Ujksop-Jijruk Hx Past Med/Social Hx: Reviewed Nursing Past Med/Soc Hx Patient Social History Recreational Drug Use: Yes Drug of Choice: marijuana Type Used: Cigarettes 2nd Hand Smoke Exposure: Yes Recent Foreign Travel: No Contact w/Someone Who Travel: No Recent Infectious Disease Expo: No Recent Hopitalizations: No Immunizations Up To Date Date of Influenza Vaccine: May 10, 2018 Seasonal Allergies Seasonal Allergies: No Past Medical History Surgeries: Yes Hysterectomy Respiratory: Yes Pneumonia Cardiac: No Neurological: No : No (hysterectomy) 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 1.0oz. 74.790830dw; 29.00 BMI Method:Stated General Appearance: No Apparent Distress, WD/WN Eyes: Bilateral Eye Normal Inspection, Bilateral Eye PERRL, Bilateral Eye EOMI HEENT: PERRL/EOMI, TMs Normal, Normal ENT Inspection, Pharynx Normal, Moist Mucous Membranes Neck: Full Range of Motion, Normal Inspection, Non Tender, Supple Respiratory: Chest Non Tender, Lungs Clear, Normal Breath Sounds Cardiovascular: Regular Rate, Rhythm, No Edema, No Murmur, Normal Peripheral Pulses Gastrointestinal: Normal Bowel Sounds, Non Tender, Soft Back: Normal Inspection; No No CVA Tenderness, No No Vertebral Tenderness Extremity: Normal Capillary Refill, Normal Inspection, Normal Range of Motion, No Calf Tenderness, No Pedal Edema Neurologic/Psychiatric: Alert, Oriented x3, No Motor/Sensory Deficits, Normal Mood/Affect Skin: Normal Color, Warm/Dry Progress/Results/Core Measures Suspected Sepsis Recent Fever Within 48 Hours: No Infection Criteria Present: None New/Unexplained Altered Menta: No Sepsis Screen: No Definite Risk SIRS Temperature: Pulse: 111 Respiratory Rate: 18 Laboratory Tests 04/26/20 14:32: White Blood Count 14.6H Blood Pressure 133 /93 Mean: 106 Laboratory Tests 04/26/20 14:32: Creatinine 1.87H, Platelet Count 394, Total Bilirubin 0.6 Results/Orders Lab Results Laboratory Tests Test 04/26/20 14:26 04/26/20 14:32 04/26/20 15:25 04/26/20 16:26 Range/Units Glucometer > 600 *H 450 *H 70-110 MG/DL White Blood Count 14.6 H 4.3-11.0 10^3/uL Red Blood Count 4.31 3.80-5.11 10^6/uL Hemoglobin 12.8 11.5-16.0 g/dL Hematocrit 37 35-52 % Mean Corpuscular Volume 86 80-99 fL Mean Corpuscular Hemoglobin 30 25-34 pg Mean Corpuscular Hemoglobin Concent 34 32-36 g/dL Red Cell Distribution Width 11.9 10.0-14.5 % Platelet Count 394 130-400 10^3/uL Mean Platelet Volume 10.8 9.0-12.2 fL Immature Granulocyte % (Auto) 0 % Neutrophils (%) (Auto) 81 H 42-75 % Lymphocytes (%) (Auto) 10 L 12-44 % Monocytes (%) (Auto) 9 0-12 % Eosinophils (%) (Auto) 0 0-10 % Basophils (%) (Auto) 0 0-10 % Neutrophils # (Auto) 11.8 H 1.8-7.8 10^3/uL Lymphocytes # (Auto) 1.4 1.0-4.0 10^3/uL Monocytes # (Auto) 1.3 H 0.0-1.0 10^3/uL Eosinophils # (Auto) 0.0 0.0-0.3 10^3/uL Basophils # (Auto) 0.0 0.0-0.1 10^3/uL Immature Granulocyte # (Auto) 0.1 0.0-0.1 10^3/uL Neutrophils % (Manual) 78 % Lymphocytes % (Manual) 10 % Monocytes % (Manual) 10 % Band Neutrophils 2 % Blood Morphology Comment NORMAL Sodium Level 129 L 135-145 MMOL/L Potassium Level 4.4 3.6-5.0 MMOL/L Chloride Level 92 L 98-107 MMOL/L Carbon Dioxide Level 22 21-32 MMOL/L Anion Gap 15 H 5-14 MMOL/L Blood Urea Nitrogen 35 H 7-18 MG/DL Creatinine 1.87 H 0.60-1.30 MG/DL Estimat Glomerular Filtration Rate 30 BUN/Creatinine Ratio 19 Glucose Level 670 *H 70-105 MG/DL Calcium Level 10.9 H 8.5-10.1 MG/DL Corrected Calcium 10.7 H 8.5-10.1 MG/DL Total Bilirubin 0.6 0.1-1.0 MG/DL Aspartate Amino Transf (AST/SGOT) 14 5-34 U/L Alanine Aminotransferase (ALT/SGPT) 22 0-55 U/L Alkaline Phosphatase 189 H 40-136 U/L Total Protein 7.6 6.4-8.2 GM/DL Albumin 4.3 3.2-4.5 GM/DL Beta-Hydroxybutyrate (Chem panel) 0.86 H 0.00-0.27 MMOL/L Urine Color YELLOW Urine Clarity CLEAR Urine pH 6.0 5-9 Urine Specific [place] 1.010 L 1.016-1.022 Urine Protein 1+ H NEGATIVE Urine Glucose (UA) 3+ H NEGATIVE Urine Ketones 1+ H NEGATIVE Urine Nitrite NEGATIVE NEGATIVE Urine Bilirubin NEGATIVE NEGATIVE Urine Urobilinogen 0.2 < = 1.0 MG/DL Urine Leukocyte Esterase NEGATIVE NEGATIVE Urine RBC (Auto) 1+ H NEGATIVE Urine RBC 0-2 /HPF Urine WBC RARE /HPF Urine Crystals NONE /LPF Urine Bacteria TRACE /HPF Urine Casts NONE /LPF Urine Mucus NEGATIVE /LPF Urine Culture Indicated NO Urine Opiates Screen NEGATIVE NEGATIVE Urine Oxycodone Screen NEGATIVE NEGATIVE Urine Methadone Screen NEGATIVE NEGATIVE Urine Propoxyphene Screen NEGATIVE NEGATIVE Urine Barbiturates Screen NEGATIVE NEGATIVE Ur Tricyclic Antidepressants Screen NEGATIVE NEGATIVE Urine Phencyclidine Screen NEGATIVE NEGATIVE Urine Amphetamines Screen NEGATIVE NEGATIVE Urine Methamphetamines Screen NEGATIVE NEGATIVE Urine Benzodiazepines Screen NEGATIVE NEGATIVE Urine Cocaine Screen NEGATIVE NEGATIVE Urine Cannabinoids Screen POSITIVE H NEGATIVE My Orders Orders - NANY LANDEROS GABRIELLA Accucheck Stat ONCE (04/26/20 14:23) Ondansetron Injection (Zofran Injectio (04/26/20 14:45) Ed Iv/Invasive Line Start (04/26/20 14:35) Ns Iv 1000 Ml (Sodium Chloride 0.9%) (04/26/20 14:35) Cbc With Automated Diff (04/26/20 14:35) Comprehensive Metabolic Panel (04/26/20 14:35) Drug Screen Stat (Urine) (04/26/20 14:35) Ua Culture If Indicated (04/26/20 14:35) Beta Hydroxybutyrate (04/26/20 14:35) Insulin (Regular) Human (Novolin R (Per (04/26/20 14:38) Manual Differential (04/26/20 14:32) Accucheck Stat ONCE (04/26/20 15:50) Medications Given in ED Current Medications Medications Dose Ordered Sig/Felicitas Route Start Time Stop Time Status Last Admin Dose Admin Ondansetron HCl 8 mg ONCE ONCE IVP 04/26/20 14:45 04/26/20 14:46 DC 04/26/20 14:58 8 MG Vital Signs/I&O 04/26/20 14:21 Temp 36.7 Pulse 111 Resp 18 B/P (MAP) 133/93 (106) Pulse Ox 100 O2 Delivery Room Air Capillary Refill : Less Than 3 Seconds Blood Pressure Mean: 106 Point of Care Testing Blood Glucose Action Taken: TO HIGH TO READ Progress Note : Time: 14:25 Progress Note Patient seen and evaluated. Will obtain labs, normal saline 1 L per IV and Zofran 8 mg. 1450 glucose 670, will give 5 units of regular insulin in her liter of normal saline IV. 1530 patient reports nausea has improved. Requesting ice chips. 700 ML's of normal saline had infused, will await remainder of IV infusion before repeating Accu-Chek. 1600 Accucheck 450. No further nausea or vomiting. Patient reports to be feeling much better. 1630 discharge instructions and return precautions reviewed with the patient. She does have Zofran at home to use for nausea and vomiting. She'll continue to monitor her blood sugars. Departure Impression Primary Impression: Hyperglycemia Additional Impression: Nausea and vomiting Qualified Codes: R11.2 - Nausea with vomiting, unspecified Disposition: HOME, SELF-CARE Condition: Improved Departure-Patient Inst. Decision time for Depature: 16:30 Referrals: ANITHA CASTELLANO MD (PCP/Family) Primary Care Physician Patient Instructions: Hyperglycemia, Adult (DC), Nausea and Vomiting, Adult (DC) Add. Discharge Instructions: Continue to abide by a clear liquid diet for the next 4 hours, then advance diet to bland as tolerated. Check your blood sugar with glucometer every 2 hours, gesture insulin as needed. Resume your antibiotic tomorrow. Follow-up with your primary care provider if symptoms are not improving or worsen. Use the Zofran every 6-8 hours as needed for nausea and vomiting. Return to the emergency department for new, urgent health care needs. All discharge instructions reviewed with patient and/or family. Voiced understanding. Work/School Note: Work Release Form Date Seen in the Emergency Department: Apr 26, 2020 Return to Work: Apr 28, 2020 Restrictions: No Restrictions Copy Copies To 1: ANITHA CASTELLANO MD, AMY ARNP Apr 26, 2020 14:57
[2020-04-26 15:33] LABS: BILIRUBIN,URINE NEGATIVE (NEGATIVE); CLARITY,URINE CLEAR; COLOR,URINE YELLOW; GLUCOSE, URINE (UA) 3+ (NEGATIVE); KETONES,URINE 1+ (NEGATIVE); LEUKOCYTE ESTERASE ,URINE NEGATIVE (NEGATIVE); NITRITE,URINE NEGATIVE (NEGATIVE); PROTEIN,URINE 1+ (NEGATIVE)
[2020-04-26 15:49] LABS: BACTERIA,URINE TRACE /HPF; RBC,URINE 0-2 /HPF; WBC,URINE RARE /HPF
[2020-04-26 15:53] LABS: AMPHETAMINE SCREEN, URINE NEGATIVE (NEGATIVE); BARBITURATE SCREEN URINE NEGATIVE (NEGATIVE); BENZODIAZEPINES SCREEN URINE NEGATIVE (NEGATIVE); CANNABINOID SCREEN, URINE POSITIVE (NEGATIVE); COCAINE SCREEN URINE NEGATIVE (NEGATIVE); METHADONE STAT NEGATIVE (NEGATIVE); METHAMPHETAMINE SCREEN URINE S NEGATIVE (NEGATIVE); OPIATE SCREEN URINE NEGATIVE (NEGATIVE); OXYCODONE STAT NEGATIVE (NEGATIVE); PROPOXYPHENE STAT NEGATIVE (NEGATIVE); TRICYCLIC ANTIDEPRESSANTS SCRE NEGATIVE (NEGATIVE)
[2020-04-26 17:08] VITALS: BP 127/73
== END 2020-04-26 17:08 | disposition home or self-care (01) ==
LOC: EDUNIT# 14:18 → ER 14:19
DX: R11.2 Nausea with vomiting, unspecified (principal); E11.65 Type 2 diabetes mellitus with hyperglycemia; Z79.4 Long term (current) use of insulin; Z77.22 Contact with and (suspected) exposure to environmental tobacco smoke (acute) (chronic); Z88.8 Allergy status to other drugs, medicaments and biological substances
CPT/HCPCS: 36415; 80053; 80306; 81000; 82010; 82962; 85007; 85027

== ENCOUNTER → 2022-03-25 | Outpatient (CLI) | payer OTHER ==
[~2022-03-25] MED LIST changes: +CATHETER FLUSH 10 ML SYR IVP PRN; +LEVO-55 PO; -LEVO500T80 PO; -LISI10TA2 PO; +LISI10TA25 PO
--- NOTE | 2022-03-25 14:14 | Diagnostic Imaging Report ---
BONE SCAN 3 PHASE INDICATION: Open wound on the lateral aspect of the left forefoot COMPARISON: None available. TECHNIQUE: Three-phase scintigraphic imaging of the bilateral feet was performed after the intravenous administration of 26.4 mCi of technetium 99m MDP. FINDINGS: There is asymmetric blood flow to the soft tissues along lateral aspect of the left 5th metatarsal. There is associated increased radiotracer uptake in this region on blood pool imaging. On delayed phase imaging, the underlying 5th metatarsal does have some intrinsic radiotracer activity. IMPRESSION: Positive three-phase bone scan associated with the ulcer of the lateral left forefoot suggest soft tissue infection with an osteomyelitis of the 5th metatarsal head. Dictated by: Dictated on workstation # [id number]
== END ==
LOC: CARD 08:48
PROVIDERS: ATTEND Nurse Practitioner Family
DX: M86.172 Other acute osteomyelitis, left ankle and foot (principal); L97.529 Non-pressure chronic ulcer of other part of left foot with unspecified severity
CPT/HCPCS: 78315; A9503

== ENCOUNTER → 2022-04-05 | Outpatient (CLI) | payer OTHER ==
[~2022-04-05] MED LIST changes: -CATHETER FLUSH 10 ML SYR IVP PRN
--- NOTE | 2022-04-05 12:15 | Diagnostic Imaging Report ---
INDICATION: Chronic wound/infection at the left 5th metatarsal level. EXAMINATION: Left lower extremity MRI without contrast on 04/05/2022. FINDINGS: A marker was placed at the site of concern overlying the distal 5th metatarsal. Underlying the marker is focal skin thickening with subcutaneous edema. No drainable fluid collection/abscess is appreciated. The underlying osseous structures demonstrate normal signal intensity with no changes suggestive of osteomyelitis. The visualized tendons appear unremarkable. Within the remaining foot, nonspecific foci of T2 hyperintensity and T1 hypointensity are scattered about the 1st proximal phalanx. IMPRESSION: 1. Focal edema versus cellulitis along the soft tissues overlying the 5th metatarsophalangeal joint. No changes suggestive of osteomyelitis. No abscess appreciated. 2. Nonspecific areas of signal alteration within the proximal 1st phalanx. Correlation with radiographs or CT may provide better characterization. Dictated by: Dictated on workstation # [id number]
== END ==
LOC: RAD 08:45
PROVIDERS: ATTEND Podiatrist Foot & Ankle Surgery
DX: S91.302A Unspecified open wound, left foot, initial encounter (principal); X58.XXXA Exposure to other specified factors, initial encounter